=== PATIENT | male | born 1935 | race Caucasian/White ===

== ENCOUNTER 2024-10-09 18:31 | Emergency (ER) | payer MEDICARE, SELFPAY ==
--- NOTE | ~2024-10-09 | CT_ITS ---
History: Remote history of a fall PROCEDURE: CT cervical spine and facial bones without intravenous contrast. COMPARISON: None TECHNIQUE: Multiple contiguous axial images of the cervical spine and facial bones were performed without the ad ministration of intravenous contrast. DLP: 176 mGy-cm FINDINGS: Straightening of the normal curvature of the cervical spine is identified. No acute fractures are present. Significant degenerative disease is identified with osteophyte formation, disc space narrowing, endpl ate changes and vacuum phenomena. Some osteophytes are bridging. 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 The bilateral lung apices are not completely included, insufficient for comment No soft tissue abnormality is appreciated. The airway is patent. No acute facial bone fracture is appreciated. 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 No discrete facial bone fracture is present. Reviewed, dictated and finalized at location A. EWATER TREATMENT OPERATOR Impression: Significant degenerative disease within the cervical spine without acute fractu re. No discrete facial bone fracture is present.
--- NOTE | ~2024-10-09 | XR_ITS ---
CHEST RADIOGRAPH, PA AND LATERAL CLINICAL HISTORY: syncope . COMPARISON: None available TECHNIQUE: PA and lateral views of the chest. FINDINGS The cardiomediastinal silhouette is unremarkable. Elevation of the right hemidiaphragm with adjacent compressive atelectasis. The remainder of the lungs are clear. IMPRESSION: No focal infiltrate or effusion. Reviewed, dictated and finalized at location A. INE ASSEMBLER
--- NOTE | ~2024-10-09 | CT_ITS ---
History: Increasing confusion with remote history of a fall PROCEDURE: CT head without contrast. COMPARISON: None TECHNIQUE: Axial imaging of the head performed from the skull base to the vertex without IV contrast. Sagittal a nd coronal reformations obtained. DLP: 681 mGy-cm FINDINGS: The ventricles are enlarged. The dilatation of the ventricles is proportional to the degree of sulcal prominence, not uncommon in the senescent brain. Decreased attenuation is identified within the periventricular white matter, likely secondary to micr ovascular ischemic disease, in a patient of this age. There is no mass, mass effect or midline shift. There is no abnormal extra-axial fluid collection or intracranial hemorrhage. Visualized paranasal sinuses are clear. The mastoid air cells are well aerated. No acute displaced fractures within the overlying cranium. Impression: No acute intracranial hemorrhage or suspicious mass effect. Reviewed, dictated and finalized at location A. ION MASTER Impression: No acute intracranial hemorrhage or suspicious mass effect.
--- OUTSIDE RECORDS SUMMARY | 2024-10-09 18:35 | XMS_ITS | Data Portability ---
Author Organization [place]! [facility], Main Office Address [address] [place] [address] Care Team Providers Care Oven Dauber Name Role Phone CONOR SENA Primary Care Provider [phone] CONOR SENA Referring Provider [phone] Assessment Encounter Date Assessment Date Assessment LastModified by Organization Details LastModified Time 03/03/2024 03/03/2024 This note is dictated and transcribed by [employer]. [employer] Project Engineer variances may occur. Despite proofreading, typographical errors may occur. Occasional wrong-word or '[id number]' substitutions may have occurred due to the inherent limitations of voice recording. Read the chart carefully and recognize, using context, where substitutions have occurred. Not available 03/03/2024 12:59:13 07/07/2024 07/07/2024 This note is dictated and transcribed by [employer]. Capital Project Engineer variances may occur. Despite proofreading, typographical errors may occur. Occasional wrong-word or 'vkuwa-t-hwia' substitutions may have occurred due to the inherent limitations of voice recording. Read the chart carefully and recognize, using context, where substitutions have occurred. 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 He is not a candidate for shoulder arthroplasty with his age and other medical problems and he otherwise gets along with conservative measures his last cortisone shot was 7 months ago and he did well until an overuse type injury which flared up his shoulder waxing a car. We talked about treatment options today in detail he wanted to proceed with oral prednisone a shot of cortisone and physical therapy we will get him set up with all the above. Under sterile conditions I injected the patient's right shoulder joint in the office today with 4 cc 0.5% bupivacaine and 20 mg of Kenalog. Patient tolerated procedure well. His left shoulder is feeling good so no treatment was necessary there. I have advised him to do his exercise program as instructed by Physical therapy daily as he does have some rotator cuff musculature atrophy around the right shoulder. the patient is quite thin and not heavily muscled which is typical for 89 years of age. I will see him back as needed we could do another shot in the future if necessary he voiced understanding and agreed with the above plan he will call for any further problems difficulties or questions. [email or web address] Not available 07/23/2024 15:11:55 Plan of Treatment Reminders Order Date Submit Date Provider Last Modified By Organization Details Last Modified Time Details Appointments Establish ed Patient 15 2024 03:00P Jeremy Ignacio DPM Not available Not available Not available Lab uric acid, serum or plasma 2023 024 [facility], [address] [place], [address], 03/20/2024 10:05:00 lipid panel, serum 2023 024 [email or web address] [facility], [address] [place], [address], 03/20/2024 10:05:01 CMP, serum or plasma 2023 024 [email or web address] [facility], [address] [place], [address], 03/20/2024 10:05:01 T4, free, serum 2023 024 [email or web address] [facility], [address] [place], [address], 03/20/2024 10:05:01 magnesium , serum or plasma 2023 024 [facility], [address] [place] [address], [address], 03/20/2024 10:05:00 vitamin B12, serum 2023 024 [email or web address] [facility], [address] [place], [address], 03/20/2024 10:05:00 CBC w/ auto diff 2023 024 [email or web address] [facility], [address] [place], [address], 03/20/2024 10:05:00 uric acid, serum or plasma 2024 025 [facility], [address] [place], [address], 09/23/2024 16:01:04 magnesium , serum or plasma 2024 025 [facility], [address] [place], [address], 09/23/2024 16:00:58 vitamin B12, serum 2024 025 [facility], [address] [place], [address], 09/23/2024 16:50:00 CBC w/ auto diff 2024 025 [facility], [address] [place], [address], 09/23/2024 14:30:23 CMP, serum or plasma 2024 025 [facility], [address] [place], [address], 09/23/2024 16:00:50 lipid panel, serum 2024 025 [facility], [address] [place], [address], 09/23/2024 16:00:53 Referral physical therapist referral - Please contact patient to schedule 2023 024 [email or web address] [facility], [address] [place], [address], 09/30/2024 08:19:21 Procedures injection /aspirati on joint/bur sa (PROC) 2023 024 [email or web address] In-Office Order, Internal Use Only DO Not Attach Compendium DO Not Attach Compendium, Do Not Delete/merge, [id number] 07/23/2024 14:09:30 Surgeries None recorded. Imaging None recorded. Medication Orders prednison e 10 mg tablets in a dose pack [address]/Pharmacy #[id number], [address] , [place], [address], 09/23/2024 11:32:35 bupivacai ne HCl 0.5 % (5 mg/mL) injection solution [address]/Pharmacy #[id number], [address] , [place], [address], 09/23/2024 11:32:24 Kenalog 10 mg/mL suspensio n for injection [address]/Pharmacy #[id number], [address] , [place], [address], 09/23/2024 11:32:27 Patient TargetsNo targets recorded. Patient Instructions Encounter Date Encounter Id Patient Instructions Last Modified By Organization Details Last Modified Time 02/26/2024 [id number] dementia rating scale-2* [email or web address] Not available 02/26/2024 11:30:55 alcohol misuse* [email or web address] Not available 02/26/2024 11:30:55 depression screening* [email or web address] Not available 02/26/2024 11:30:54 multi-dimensiona health assessment questionnaire* [email or web address] Not available 02/26/2024 11:30:55 [place] Advance Directives [email or web address] Not available 02/26/2024 11:30:54 advance care planning: care instructions [email or web address] Not available 02/26/2024 11:30:54 advance directiv es: care instructions Not available 02/26/2024 11:30:54 Personalized Hea lth Plan and Screening Recommendations Advance Directives - Do you have one? No Advance Directives - Do we have your advance directive on file in your health record? Primary Prevention/Interven tion (prevents or decreases the chance of common diseases from occurring) Smoking Risk: Non Smoker Alcohol Misuse Screening: Negative Weight: Appropriate Physical activity: Need more exercise/physical activity Nutrition: Good Average Fall Risk (screened today): Low Vaccines Pneumococcal: Ordered Recommended today Recommended today, but you have declined No further needed Influenza: Your next one in the fall of this year Chronic Disease Risks Stroke: Low Risk Intermediate Risk I have no recommendations Act hamilton diagnosis, Continue current treatment plan Heart Attack: Low risk Intermediate Risk I have no recommendations Act hamilton diagnosis, Continue current treatment plan Clogging of the Arteries: Low risk Intermediate Risk I have no recommendations Act hamilton diagnosis, Continue current treatment plan Diabetes: Low Risk I have no recommendations Secondary Prevention/Interven tion (detects treatable diseases before they may cause symptoms, disability, or ) Prostate Cancer Screening: No PSA screening necessary Colon Cancer Screening: Colonoscopy No screening necessary Date Screening Last Performed: _2013 Eye Disease Screening: Dementia Risk: Low I have no recommendations Depression Screening: Negative [email or web address] Not available 02/26/2024 11:19:44 Medicare [facility] risk assessment stable. Follow-up for hypertension, GERD, gout as well as hyperlipidemia. All clinically stable. Will check blood work consisting of CBC, CMP, lipid, B2, Magnesium, Uric acid and thyroid. Will continue on current Rx follow-up in six months. Next Appointment: 6 Months Approximate Date: 08/24/2024 Portions of the record may have been created with voice recognition software. Occasional wrong-word or vivvr-o-[id number] substitutions may have occurred due to the inherent limitations of voice recognition software. Read the chart carefully and recognize, using context, where substitutions have occurred. [email or web address] Not available 02/26/2024 11:30:35 09/23/2024 [id number] Follow-up hypertension, GERD, gout as well as hyperlipidemia all clinically stable. Will continue on current medications check blood work in the form of CBC, CMP, B1, Magnesium, uric acid and lipid panel. Continue on current Rx follow-up in six months. Follow Up: 6 Months Approximate Date: 03/22/2025 Portions of the record may have been created with voice recognition software. Occasional wrong-word or [id number] substitutions may have occurred due to the inherent limitations of voice recognition software. Read the chart carefully and recognize, using context, where substitutions have occurred. Created: Conor Sena M.D. 09.23.2024 10:46 AM Not available 09/23/2024 11:46:38 Reason for Referral Physical Therapist Referral for Nontraumatic complete rupture of rotator cuff of right shoulder Please contact patient to schedule Referring Physician: Harvey Suarez, Orthopedic Surgery, Encounter Date: 07/23/2024 Results Created Date Observation Date Name Description Value Unit Range Abnormal Flag Note LastModifiedBy Organization Detail LastModifiedTime 09/23/1909/23/2024 CBC/C OMPLE TE BLD COUNT W/DIF F white blood cells 5.8 x10'3 /uL 4.2-10 .8 Not Available [facility] (Lab) [address] [place], [address], 09/23/2024 14:30:23 09/23/19 25 09/23/2024 CBC/C OMPLE TE BLD COUNT W/DIF F red blood cells 3.55 x10'6 /uL 4.10-5 .80 low Not Available [facility] (Lab) [address] [place], [address], 09/23/2024 14:30:23 09/23/19 25 09/23/2024 CBC/C OMPLE TE BLD COUNT W/DIF F hemoglobin 11.5 g/dL 13.2-1 7.0 low Not Available [facility] (Lab) [address] [place], [address], 09/23/2024 14:30:23 09/23/19 25 09/23/2024 CBC/C OMPLE TE BLD COUNT W/DIF F hematocrit 35.0 % 39.3-5 0.0 low Not Available [facility] (Lab) [address] [place], [address], 09/23/2024 14:30:23 09/23/19 25 09/23/2024 CBC/C OMPLE TE BLD COUNT W/DIF F mean red cell volume 98.6 fL 80.0-9 7.0 high Not Available [facility] (Lab) [address] [place], [address], 09/23/2024 14:30:23 09/23/19 25 09/23/2024 CBC/C OMPLE TE BLD COUNT W/DIF F mean red cell hemoglobin 32.4 pg 27.0-3 3.0 Not Available [facility] (Lab) [address] [place], [address], 09/23/2024 14:30:23 09/23/19 25 09/23/2024 CBC/C OMPLE TE BLD COUNT W/DIF F mean RBC HGB concentratio n 32.9 g/dL 31.0-3 6.0 Not Available [facility] (Lab) [address] [place], [address], 09/23/2024 14:30:23 09/23/19 25 09/23/2024 CBC/C OMPLE TE BLD COUNT W/DIF F red cell distribution width 15.2 % 11.8-1 5.5 Not Available [facility] (Lab) [address] [place], [address], 09/23/2024 14:30:23 09/23/19 25 09/23/2024 CBC/C OMPLE TE BLD COUNT W/DIF F platelets 305 x10'3 /uL 150-40 0 Not Available [facility] (Lab) [address] [place], [address], 09/23/2024 14:30:23 01/22/20 25 09/23/2024 CBC/C OMPLE TE BLD COUNT W/DIF F mean platelet volume 10.4 fL 9.0-12 .4 Not Available [facility] (Lab) [address] [place], [address], 09/23/2024 14:30:23 09/23/19 25 09/23/2024 CBC/C OMPLE TE BLD COUNT W/DIF F neutrophils 67.3 % 39.0-7 2.0 Not Available [facility] (Lab) [address] [place], [address], 09/23/2024 14:30:23 09/23/19 25 09/23/2024 CBC/C OMPLE TE BLD COUNT W/DIF F lymphocytes 15.0 % 16.0-4 7.0 low Not Available [facility] (Lab) [address] [place], [address], 09/23/2024 14:30:23 09/23/19 25 09/23/2024 CBC/C OMPLE TE BLD COUNT W/DIF F monocytes 14.6 % 5.0-12 .0 high Not Available [facility] (Lab) [address] [place], [address], 09/23/2024 14:30:23 09/23/19 25 09/23/2024 CBC/C OMPLE TE BLD COUNT W/DIF F eosinophils 1.9 % 1.0-7. 0 Not Available [facility] (Lab) [address] [place], [address], 09/23/2024 14:30:23 09/23/19 25 09/23/2024 CBC/C OMPLE TE BLD COUNT W/DIF F basophils 0.7 % 0.0-2. 0 Not Available [facility] (Lab) [address] [place], [address], 09/23/2024 14:30:23 09/23/19 25 09/23/2024 CBC/C OMPLE TE BLD COUNT W/DIF F immature granulocytes 0.5 % 0.00-0 .50 Not Available [facility] (Lab) [address] [place], [address], 09/23/2024 14:30:23 09/23/19 25 09/23/2024 CBC/C OMPLE TE BLD COUNT W/DIF F neutrophils, absolute count 3.91 x10'3 /uL 1.5-8. 0 Not Available [facility] (Lab) [address] [place], [address], 09/23/2024 14:30:23 09/23/19 25 09/23/2024 CBC/C OMPLE TE BLD COUNT W/DIF F lymphocytes, absolute count 0.87 x10'3 /uL 1.07-3 .43 low Not Available [facility] (Lab) [address] [place], [address], 09/23/2024 14:30:23 09/23/19 25 09/23/2024 CBC/C OMPLE TE BLD COUNT W/DIF F monocytes, absolute count 0.85 x10'3 /uL 0.29-0 .99 Not Available [facility] (Lab) [address] [place], [address], 09/23/2024 14:30:23 09/23/19 25 09/23/2024 CBC/C OMPLE TE BLD COUNT W/DIF F eosinophils, absolute count 0.11 x10'3 /uL 0.02-0 .53 Not Available [facility] (Lab) [address] [place], [address], 09/23/2024 14:30:23 09/23/19 25 09/23/2024 CBC/C OMPLE TE BLD COUNT W/DIF F basophils, absolute count 0.04 x10'3 /uL 0.01-0 .08 Not Available [facility] (Lab) [address] [place], [address], 09/23/2024 14:30:23 09/23/19 25 09/23/2024 CBC/C OMPLE TE BLD COUNT W/DIF F immature granulocytes ,absolute 0.03 x10'3 /uL 0.00-0 .05 Not Available [facility] (Lab) [address] [place], [address], 09/23/2024 14:30:23 09/23/19 25 09/23/2024 CBC/C OMPLE TE BLD COUNT W/DIF F nucleated red blood cells 0.0 % -0 Not Available [facility] (Lab) [address] [place], [address], 09/23/2024 14:30:23 09/23/19 25 09/23/2024 CBC/C OMPLE TE BLD COUNT W/DIF F NRBC# 0.00 x10'3 /uL Not Available [facility] (Lab) [address] [place], [address], 09/23/2024 14:30:23 09/23/19 25 09/23/2024 COMPR EHENS HAMILTON METAB OLIC PANEL sodium 130 mmol/ L 137-14 5 low Not Available [facility] (Lab) [address] [place], [address], 09/23/2024 16:00:50 09/23/19 25 09/23/2024 COMPR EHENS HAMILTON METAB OLIC PANEL potassium 4.6 mmol/ L 3.5-5. 1 Not Available [facility] (Lab) [address] [place], [address], 09/23/2024 16:00:50 09/23/19 25 09/23/2024 COMPR EHENS HAMILTON METAB OLIC PANEL chloride 97 mmol/ L 98-107 low Not Available [facility] (Lab) [address] [place], [address], 09/23/2024 16:00:50 09/23/19 25 09/23/2024 COMPR EHENS HAMILTON METAB OLIC PANEL carbon dioxide 30 mmol/ L 22-30 Not Available [facility] (Lab) [address] [place], [address], 09/23/2024 16:00:50 09/23/19 25 09/23/2024 COMPR EHENS HAMILTON METAB OLIC PANEL anion gap 7.6 mmol/ L 14-22 low Not Available [facility] (Lab) [address] [place], [address], 09/23/2024 16:00:50 09/23/19 25 09/23/2024 COMPR EHENS HAMILTON METAB OLIC PANEL glucose 87 mg/dL 70-99 Not Available [facility] (Lab) [address] [place], [address], 09/23/2024 16:00:50 09/23/19 25 09/23/2024 COMPR EHENS HAMILTON METAB OLIC PANEL BUN 17 mg/dL 8-19 Not Available [facility] (Lab) [address] [place], [address], 09/23/2024 16:00:50 09/23/19 25 09/23/2024 COMPR EHENS HAMILTON METAB OLIC PANEL creatinine 0.76 mg/dL 0.66-1 .25 Not Available [facility] (Lab) [address] [place], [address], 09/23/2024 16:00:50 09/23/19 25 09/23/2024 COMPR EHENS HAMILTON METAB OLIC PANEL GFR >60 Refer ence Range : Bryson ge GFR Healt hy Adult : >60 mL/mi n/1.7 3 m2 Chron ic Kidne y Disea se: 15-60 mL/mi n/1.7 3 m2 Kidne y Failu re: <15/m L/min /1.73 m2 www.n iddk. nih.g ov The MDRD study equat ion has not been valid ated in child liliana <18 years of age; pregn ant women ; the elder ly >85 years of age; or in some racia l or ethni c subgr oups, such as Roman nics. Outsi de the valid ated michael eters , estim ated GFR is less accur ate, requi ring clini aden judgm ent on a case- by-ca se basis . Clini aden inter preta tion for other races and ages must be made by the clini carlos alberto. The MDRD study equat ion has not been valid ated for the evalu ation of serum creat inine relat ed to nutri remi l statu s or medic ation usage . For perso ns <18 years of age, a pedia tric GFR calcu lator is avail able on the [facility] websi te: https ://samra hu.rema ross.o rg/pr ofess ional s/kdo qi/gf r_cal culat or Not Available [facility] (Lab) [address] [place], [address], 09/23/2024 16:00:50 09/23/19 25 09/23/2024 COMPR EHENS HAMILTON METAB OLIC PANEL alkaline phosphatase 105 U/L 38-126 Not Available [facility] (Lab) [address] [place], [address], 09/23/2024 16:00:50 09/23/19 25 09/23/2024 COMPR EHENS HAMILTON METAB OLIC PANEL alanine aminotransfe rase 26 U/L 0-50 Not Available [facility] (Lab) [address] [place], [address], 09/23/2024 16:00:50 09/23/19 25 09/23/2024 COMPR EHENS HAMILTON METAB OLIC PANEL aspartate aminotransfe rase 42 U/L 15-46 Not Available [facility] (Lab) [address] [place], [address], 09/23/2024 16:00:50 09/23/19 25 09/23/2024 COMPR EHENS HAMILTON METAB OLIC PANEL bilirubin, total 0.70 mg/dL 0.20-1 .30 Not Available [facility] (Lab) [address] [place], [address], 09/23/2024 16:00:50 09/23/19 25 09/23/2024 COMPR EHENS HAMILTNO METAB OLIC PANEL calcium 9.6 mg/dL 8.4-10 .2 Not Available [facility] (Lab) [address] [place], [address], 09/23/2024 16:00:50 09/23/19 25 09/23/2024 COMPR EHENS HAMILTON METAB OLIC PANEL total protein 7.0 g/dL 6.3-8. 2 Not Available [facility] (Lab) [address] [place], [address], 09/23/2024 16:00:50 09/23/19 25 09/23/2024 COMPR EHENS HAMILTON METAB OLIC PANEL albumin 4.4 g/dL 3.0-4. 4 Not Available [facility] (Lab) [address] [place], [address], 09/23/2024 16:00:50 09/23/19 25 09/23/2024 COMPR EHENS HAMILTON METAB OLIC PANEL globulin 2.6 g/dL 2.6-4. 2 Not Available [facility] (Lab) [address] [place], [address], 09/23/2024 16:00:50 09/23/19 25 09/23/2024 COMPR EHENS HAMILTON METAB OLIC PANEL A/G ratio 1.7 ratio 1.0-2. 0 Not Available [facility] (Lab) [address] [place], [address], 09/23/2024 16:00:50 09/23/19 25 09/23/2024 LIPID PANEL cholesterol 202 mg/dL 140-19 9 high NIH LESLIE NSUS RECOM MENDA TION FOR TEOFILO STERO L: ADULT CHILD LOW RISK: <200 <170 BORDE RLINE : <200- 239 ----- HIGH RISK: >240 >200 Not Available [facility] (Lab) [address] [place], [address], 09/23/2024 16:00:53 09/23/19 25 09/23/2024 LIPID PANEL triglyceride s 102 mg/dL 0-150 NIH LESLIE NSUS REPOR T RECOM MENDA TION FOR TRIGL YCERI TAMIKA: ADULT CHILD LOW RISK: <150 ----- BODER LINE: 150-1 99 ----- HIGH RISK: >200 ----- Not Available [facility] (Lab) [address] [place], [address], 09/23/2024 16:00:53 09/23/19 25 09/23/2024 LIPID PANEL HDL cholesterol 83 mg/dL 40- Not Available [facility] (Lab) [address] [place], [address], 09/23/2024 16:00:53 09/23/19 25 09/23/2024 LIPID PANEL LDL cholesterol, calculated 99 mg/dL 0-130 NIH LESLIE NSUS REPOR T RECOM MENDA TIONS FOR LDL: ADULT CHILD LOW RISK <130 <110 (OPTI MAL LDL) <100 ----- BORDE RLINE : 130-1 59 ----- HIGH RISK: >160 >130 A TRIGL YCERI DE RESUL T >400 INVAL IDATE S THE CALCU LATIO N FOR LDL FRACT IONAT ION - THE LDL RESUL T WILL NOT BE REPOR JOAQUÍN. Not Available [facility] (Lab) [address] [place], [address], 09/23/2024 16:00:53 09/23/19 25 09/23/2024 MAGNE SIUM magnesium 1.9 mg/dL 1.6-2. 3 Not Available [facility] (Lab) [address] [place], [address], 09/23/2024 16:00:58 09/23/19 25 09/23/2024 URIC ACID SERUM uric acid 4.2 mg/dL 3.5-8. 5 Not Available [facility] (Lab) [address] [place], [address], 09/23/2024 16:01:04 09/23/19 25 09/23/2024 VITAM IN B12 (ARMIDA ZABRINA ) vb12 990 pg/mL 239-93 1 high Not Available [facility] (Lab) [address] [place], [address], 09/23/2024 16:50:00 09/29/19 25 09/29/2024 OSMOL ALITY SERUM serum osmolality 285 mosmo l/kg 280-30 1 Not Available [facility] (Lab) [address] [place], [address], 09/29/2024 18:13:30 09/29/19 25 09/29/2024 OSMOL ALITY SERUM confirm 286 mosmo l/k 275-29 5 Not Available [facility] (Lab) [address] [place], [address], 09/29/2024 18:13:30 09/29/19 25 09/29/2024 OSMOL ALITY URINE ur osmol 494 mosmo l/k 50-120 0 Not Available [facility] (Lab) [address] [place], [address], 09/29/2024 18:15:57 09/29/19 25 09/29/2024 OSMOL ALITY URINE confirm 496 mosmo l/k 50-120 0 Not Available [facility] (Lab) [address] [place], [address], 09/29/2024 18:15:57 09/29/19 25 09/29/2024 IRON/ TIBC PANEL total iron binding capacity 293 mcg/d L 265-47 5 Not Available [facility] (Lab) [address] [place], [address], 09/29/2024 20:30:29 09/29/19 25 09/29/2024 IRON/ TIBC PANEL % transferrin saturation 28 % 20-55 Not Available [facility] (Lab) [address] [place], [address], 09/29/2024 20:30:29 09/29/19 25 09/29/2024 IRON/ TIBC PANEL unsaturated iron bind capacity 212 mcg/d L 126-38 2 Not Available [facility] (Lab) [address] [place], [address], 09/29/2024 20:30:29 09/29/19 25 09/29/2024 IRON/ TIBC PANEL iron 81 mcg/d L 42-175 Not Available [facility] (Lab) [address] [place], [address], 09/29/2024 20:30:29 09/29/19 25 09/30/2024 PROTE IN ELECT RO.,S protein, total 6.1 g/dL 6.0-8. 5 Not Available [facility] (Lab) [address] [place], [address], 09/30/2024 16:10:12 09/29/19 25 09/30/2024 PROTE IN ELECT RO.,S albumin 3.3 g/dL 2.9-4. 4 Not Available [facility] (Lab) [address] [place], [address], 09/30/2024 16:10:12 09/29/19 25 09/30/2024 PROTE IN ELECT RO.,S yipuw-8-eiup ulin 0.2 g/dL 0.0-0. 4 Not Available [facility] (Lab) [address] [place], [address], 09/30/2024 16:10:12 09/29/19 25 09/30/2024 PROTE IN ELECT RO.,S epjkw-5-uyvj ulin 0.8 g/dL 0.4-1. 0 Not Available [facility] (Lab) [address] [place], [address], 09/30/2024 16:10:12 09/29/19 25 09/30/2024 PROTE IN ELECT RO.,S beta globulin 1.0 g/dL 0.7-1. 3 Not Available [facility] (Lab) [address] [place], [address], 09/30/2024 16:10:12 09/29/19 25 09/30/2024 PROTE IN ELECT RO.,S gamma globulin 0.8 g/dL 0.4-1. 8 Not Available [facility] (Lab) [address] [place], [address], 09/30/2024 16:10:12 09/29/19 25 09/30/2024 PROTE IN ELECT RO.,S M-spike NOT OBSERV ED g/dL not observ ed Not Available [facility] (Lab) [address] [place], [address], 09/30/2024 16:10:12 09/29/19 25 09/30/2024 PROTE IN ELECT RO.,S globulin, total 2.8 g/dL 2.2-3. 9 Not Available [facility] (Lab) [address] [place], [address], 09/30/2024 16:10:12 09/29/19 25 09/30/2024 PROTE IN ELECT RO.,S A/G ratio 1.2 0.7-1. 7 Not Available [facility] (Lab) [address] [place], [address], 09/30/2024 16:10:12 09/29/19 25 09/30/2024 PROTE IN ELECT RO.,S please note: DO De La Cruz . Prote in elect [facility] resis scan will follo w via compu ter, mail, or couri er maral anderson. Not Available [facility] (Lab) [address] [place], [address], 09/30/2024 16:10:12 09/29/19 25 09/30/2024 PROTE IN [facility] RO.,S pdf . [facility] [address] [place] [address] [address] Lab Direc tor: Jareth olivier PhD, Phone : [phone] Not Available [facility] (Lab) [address] [place], [address], 09/30/2024 16:10:12 09/29/19 25 09/30/2024 [place] NENA TIN ferritin 38 NG/mL 17.9-4 64 Not Available [facility] (Lab) [address] [place], [address], 09/30/2024 17:30:29 Result Notes None recorded. 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 Not Available [facility] 4 18:08:05 Foot callus 405542290 Active Not Available [facility] 4 18:08:05 Gastroesop hageal reflux disease 694963287 Active 2018 Not Available [facility] 4 18:08:05 Benign prostatic hyperplasi a 747178156 Active Not Available [facility] 4 18:08:05 Pure hyperchole sterolemia 449987638 Active Not Available [facility] 4 18:08:05 Syncope 077241029 Active 2021 Not Available [facility] 4 18:08:05 Chest pain 18313631 Active 2017 Not Available [facility] 4 18:08:05 Enthesopat hy of hip region 94164155 Active Not Available [facility] 4 18:08:05 Postoperat hamilton infection 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 Active Not Available [facility] 4 18:08:06 Contact dermatitis 10480713 Active Not Available [facility] 4 18:08:06 Onychomyco sis 871893713 Active Not Available [facility] 4 18:08:06 Carotid bruit 357779663 Active 2021 Not Available [facility] 4 18:08:06 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 87961521 Active Not Available [facility] 4 18:08:06 Gastric hemorrhage 51569880 Active 2018 Not Available [facility] 4 18:08:06 Gout 99926164 Active 2021 Not Available [facility] 4 18:08:06 Dystrophia unguium 99336851 Active 2022 Not Available [facility] 4 18:08:06 Unable to cut own toenails 483305596 Active 2022 Not Available [facility] 4 18:08:05 Pain of toe of right foot 4385968695459 01 Active 2022 Not Available [facility] 4 18:08:05 Hammer toe 443853872 Active 2022 Not Available [facility] 4 18:08:05 Anemia 682996767 Active 2023 Not Available [facility] 4 18:08:05 Acute bronchitis 56020088 Active 2023 Conor Sena MD [address], [place], [address] , [facility] [employer] [facility] 4 10:59:35 Expiratory wheezing 3602349 Active 2023 Conor Sena MD [address], [place], [address] , [facility] 4 11:46:28 Cough 11119745 Active 2023 KENN Christensen, [facility] 4 11:44:22 Bilateral shoulder joint pain 3871154066384 9104 Active 2023 Lakshmi Hernadez blessing, [facility] 4 15:22:30 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 0300359383234 100 Active 2023 ALEXANDRE Bowman [address], [address], [place], [address] , [facility] [employer] [facility] 4 16:43:44 Tendinitis of left rotator cuff 4148257346473 9101 Active 2023 ALEXANDRE Bowman [address], [address], [place], [address] , [facility] 4 16:43:57 Hyponatrem ia 51235136 Active 2024 KENN Christensen, [facility] [employer] [facility] 5 11:36:58 Problem Notes None recorded. Procedures Surgical History Date Name Laterality Status Provider Name and Address Organization Details Recorded Time 4 Nail Debridement completed Jabari Ignacio DPM [address], [address], [place], [address], [facility] [employer] [facility] 07/07/2024 12:12:10 4 Nail Debridement completed Jabari Ignacio DPM [address], [address], [place], [address], [facility] [employer] [facility] 03/03/2024 12:58:50 4 Medicare Wellness CPT Code, subsequent completed Ericka Nelson RN [facility] [employer] [facility] 02/26/2024 11:12:41 4 Advanced Care Planning completed Ericka Nelson RN [facility] [employer] [facility] 02/26/2024 11:24:36 4 Nail Debridement completed Jabari Ignacio DPM [address], [address], [place], [address], [employer] 11/21/2023 16:23:12 3 Nail Debridement completed Jabari Ignacio DPM [address], [address], [place], [address], [employer] 08/13/2023 10:34:46 3 Nail Debridement completed Jabari Ignacio DPM [address], [address], [place], [address], [employer] 12/25/2022 10:41:54 3 Callus Debridement, One completed Jabari Ingacio DPM [address], [address], [place], [address], [employer] 12/25/2022 10:42:02 Imaging Results None recorded. Procedure Notes None recorded. Medical Equipment None Reported. Allergies Allergen ID Allergen Name Allergen Category Reaction Reaction Severity Criticality Documentation Date Start Date Code Code System Note Provider Name and Address Organization Details Recorded Time 1786 Substance with sulfonami de structure and antibacte rial mechanism of action (substanc e) medicatio n Not available Not available Not available 10/31/2022 33845 8003 SNOMED Not Available [facility] 3 01:15:28 1787 lisinopri l medicatio n Not available Not available Not available 10/31/2022 63996 RxNorm Not Available [facility] 3 01:15:28 1788 Keflex medicatio n other Not available Not available 10/31/2022 00521 7 RxNorm diffi culty urina ting Not Available [facility] 3 01:15:28 1789 cephalexi n medicatio n Not available Not available Not available 10/31/2022 2231 RxNorm Not Available [facility] 3 01:15:28 1790 Product containin g angiotens in-conver ting enzyme inhibitor (product) medicatio n other Not available Not available 10/31/2022 57373 009 SNOMED angio edema Not Available [facility] 3 01:15:28 Medications Name Sig Start Date Stop Date Status Note LastModified by Organization Details LastModified Time Tylenol-Cod eimacy #4 300 mg-60 mg tablet Take 1 tablet every 6 hours by oral route. 07/15 completed Not Available Not Available Not Available prednisone 10 mg tablet PLEASE SEE ATTACHED FOR DETAILED DIRECTION S 09/23 completed Not Available Not Available Not Available doxycycline hyclate 100 mg capsule Take 1 capsule twice a day by oral route. 02/25 completed Not Available Not Available Not Available desoximetas one 0.25 % topical cream APPLY A THIN LAYER TO THE AFFECTED AREA(S) BY TOPICAL ROUTE 2 TIMES PER DAY ; RUB IN GENTLY AND COMPLETEL Y 2012 active Not Available Not Available Not Avai lable ammonium lactate 12 % lotion Apply to both feet daily as needed active Not Available Not Available No t Available azithromyci n 250 mg tablet TAKE 2 TABLETS BY MOUTH TODAY, THEN TAKE 1 TABLET DAILY FOR 4 DAYS DIRECTED 02/25 completed Not Available Not Available Not Available aspirin 325 mg tablet Take 1 tablet every day by oral route. 12/24 completed Not Available Not Available Not Available ofloxacin 0.3 % eye drops 02/08 completed Not Available Not Available Not Available benzonatate 200 mg capsule TAKE 1 CAPSULE BY MOUTH THREE TIMES A DAY 02/25 completed Not Available Not Available Not Available Claritin 10 mg tablet Take 1 tablet as needed by oral route. 2020 active Not Available Not Available Not Avai lable Keflex 500 mg capsule Take 1 capsule 4 times a day by oral route. active Not Available Not Available No t Available bupivacaine HCl 0.5 % (5 mg/mL) injection solution Take 20 mg by injection route. 09/23 completed Not Available Not Available Not Available amlodipine 5 mg tablet TAKE 1 TABLET BY MOUTH EVERY DAY active Not Available Not Available No t Available tramadol 50 mg tablet 07/29 completed Not Available Not Available Not Available triamcinolo ne acetonide 0.1 % topical cream APPLY THIN COAT TO AFFECTED AREA TWICE A DAY 11/20 completed Not Available Not Available Not Available ketorolac 0.5 % eye drops 02/08 completed Not Available Not Available Not Available prednisone 10 mg tablets in a dose pack Take 1 tab by mouth, 3 times a day for 3 daysTake 1 tab by mouth 2 times a day for 2 daysTake 1 tab by mouth once a day for 1 day 09/23 completed Not Available Not Available Not Available prednisolon e acetate 1 % eye drops,suspe nsion 04/21 completed Not Available Not Available Not Available Vitamin C 1,000 mg tablet Take 1 tablet every day by oral route. 2018 active Not Available Not Available Not Avai lable Kenalog 10 mg/mL suspension for injection Take 20 mg by injection route. 09/23 completed [facility]: [phone] Not Available Not Available Not Available pantoprazol e 40 mg tablet,jack yed release TAKE 1 TABLET BY MOUTH EVERY DAY 2024 active Not Available Not Available Not Avai lable ferrous sulfate 325 mg (65 mg iron) tablet TAKE 1 TABLET BY MOUTH TWICE A DAY 07/15 completed Not Available Not Available Not Available clotrimazol e-betametha sone 1 %-0.05 % topical cream Apply by topical route twice daily 04/21 completed Not Available Not Available Not Available methylpredn isolone 4 mg tablets in a dose pack Take by oral route as directed 02/25 completed Not Available Not Available Not Available albuterol sulfate HFA 90 mcg/actuati on aerosol inhaler INHALE 2 PUFFS INTO THE LUNGS 4 TIMES A DAY NEEDED 11/20 completed Not Available Not Available Not Available cefdinir 300 mg capsule Take 1 capsule every 12 hours by oral route. 07/15 completed Not Available Not Available Not Available amoxicillin 875 mg-potassiu m clavulanate 125 mg tablet Take 1 tablet every 12 hours by oral route for 7 days. 02/17 completed Not Available Not Available Not Available Bactrim DS 800 mg-160 mg tablet Take 1 tablet every 12 hours by oral route for 10 days. 07/15 completed Not Available Not Available Not Available cyclobenzap rine 5 mg tablet TAKE 1 TABLET BY MOUTH TWICE A DAY DO NOT OPERATE MACHINERY WHILE TAKING 11/20 completed Not Available Not Available Not Available magnesium 03/12 completed Not Available Not Available Not Available lidocaine (PF) 10 mg/mL (1 %) injection solution In office injection administe red by the provider 03/12 completed [facility]: [phone]- [phone] Not Available Not Available Not Available Fish Oil 1,000 mg (120 mg-180 mg) capsule Take 1 capsule every day by oral route. 2018 active Not Available Not Available Not Avai lable Shingrix (PF) 50 mcg/0.5 mL intramuscul ar suspension, kit TO BE ADMINISTE RED BY [email or web address] T FOR IMMUNIZAT ION 04/21 completed Not Available Not Available Not Available Fluzone High-Dose Quad (PF) 240 mcg/0.7 mL IM syringe PHARMACY ADMINISTE RED 02/08 completed Not Available Not Available Not Available Flowflex COVID-19 Antigen Home Test kit USE DIRECTED ON MANUFACTU RER PACKAGE 03/12 completed Not Available Not Available Not Available Paxlovid 300 mg (150 mg x 2)-100 mg tablets in a dose pack TAKE 2-150MG TABS OF NIRMATREL VIR WITH 1-100MG TAB OF RITONAVIR (3 TABS AT ONCE)TWIC E DAILY X 5 DAYS 03/12 completed Not Available Not Available Not Available Vitals Date Recorded Body height Body mass index (BMI) Body weight Heart rate Body temperature Oxygen saturation Oxygen saturation in Arterial blood by Pulse oximetry Systolic blood pressure Diastolic blood pressure Provider Name and Address Organization Details Last Updated DateTime 163.83 cm 22.1 kg/m2 83597.6 g 85 /min 97.4 [degF] 96 % 96 % 140 mm[Hg] 82 mm[Hg] JAC Mccarty [facility] [employer] 4 11:00:28 Date Recorded Pain severity - 0-10 verbal numeric rating [Score] - Reported Provider Name and Address Organization Details Last Updated DateTime 02/26/2024 0 Ericka Nelson RN [facility] [employer] 02/26/2024 11:13:03 Date Recorded Body height Heart rate Systolic blood pressure Diastolic blood pressure Provider Name and Address Organization Details Last Updated DateTime 03/03/2024 163.83 cm 73 /min 175 mm[Hg] 88 mm[Hg] JAC Ya [place] [facility] [employer] [facility] 03/03/2024 11:12:32 Date Recorded Body height Body mass index (BMI) Body weight Heart rate Systolic blood pressure Diastolic blood pressure Provider Name and Address Organization Details Last Updated DateTime 4 163.83 cm 22.1 kg/m2 57319.6 g 75 /min 167 mm[Hg] 77 mm[Hg] Sofía Lozanod [facility] [employer] [facility] 4 11:10:47 Date Recorded Body height Body mass index (BMI) Body weight Provider Name and Address Organization Details Last Updated DateTime 07/23/2024 167.64 cm 22.6 kg/m2 93606.93 g Candelaria KayesSYMONE [place] [facility] [employer] 07/23/2024 13:34:04 Date Recorded Body height Body mass index (BMI) Body weight Heart rate Body temperature Oxygen saturation Oxygen saturation in Arterial blood by Pulse oximetry Systolic blood pressure Diastolic blood pressure Provider Name and Address Organization Details Last Updated DateTime 5 158.75 cm 24 kg/m2 44706.5 8 g 82 /min 97 [degF] 97 % 97 % 120 mm[Hg] 78 mm[Hg] Mikayla Pandeylazarus [place] [facility] [employer] 5 11:32:11 Social History Question Answer Notes LastModified by Organization Details LastModified Time Tobacco Smoking Status Former Smoker Not Available [facility] 10/31/2022 00:54:27 Do You Have An Advance Directive? No Info Given [email or web address] Information not available 02/26/2024 What Is Your Level Of Alcohol Consumption? Occasional [id number] Information not available 10/31/2022 Do You Wear A Helmet When Biking? No Don't Bike MIGRATION.030 [id number] Information not available 10/31/2022 Are You Blind Or Do You Have Difficulty Seeing? No MIGRATION.030 013401 Information not available 10/31/2022 In The 14 Days Before Symptom Onset, Have You Had Close Contact With A Laboratory-confi rmed COVID-19 While That Case Was Ill? No [id number].[id number] Information not available 10/31/2022 In The 14 Days Before Symptom Onset, Have You Had Close Contact With A Person Who Is Under Investigation For COVID-19 While That Person Was Ill? No MIGRATION.0301 042146 Information not available 10/31/2022 Are You Deaf Or Do You Have Serious Difficulty Hearing? Yes Has Hearing Aids MIGRATION.0301 601914 Information not available 10/31/2022 What Type Of Diet Are You Following? REGULAR MIGRATION.0301 458318 Information not available 10/31/2022 Have There Been Any Changes To Your Family Or Social Situation? No MIGRATION.0301 832115 Information not available 10/31/2022 What Is The Fluoride Status Of Your Home? Non-fluoridated MIGRATION.0301 030806 Information not available 10/31/2022 Are There Any Guns Present In Your Home? No MIGRATION.0301 224890 Information not available 10/31/2022 Do You Use Insect Repellent Routinely? No MIGRATION.0301 352930 Information not available 10/31/2022 [facility] M[facility]01 [id number] Information not available 10/31/2022 Are You Able To Care For Yourself? Yes [email or web address] Information not available 02/26/2024 Are You Blind Or Do Yo Have Difficulty Seeing? No [email or web address] Information not available 02/26/2024 Are You Deaf Or Do You Have Serious Difficulty Hearing? No [email or web address] Information not available 02/26/2024 Live Alone Of With Others? With Others [email or web address] Information not available 02/26/2024 Do You Have A Medical Power Of Maintenance And Utilities Supervisor? No MIGRATION.0301 [id number] Information not available 10/31/2022 What Was The Date Of Your Most Recent Tobacco Screening? 02/26/2024 [email or web address] Information not available 02/26/2024 Do You Have Any Pets? No MIGRATION.0301 262428 Information not available 10/31/2022 What Is Your Relationship Status? MIGRATION.0301 403230 Information not available 10/31/2022 Do You Use Your Seat Belt Or Car Seat Routinely? Yes MIGRATION.0301 764880 Information not available 10/31/2022 Do You Have Smoke And Carbon Monoxide Detectors In Your Home? Yes MIGRATION.0301 072124 Information not available 10/31/2022 Are You Passively Exposed To Smoke? No MIGRATION.0301 098319 Information not available 10/31/2022 Are There Any Smokers In Your House? No MIGRATION.0301 993180 Information not available 10/31/2022 Do You Feel Stressed (tense, Restless, Nervous, Or Anxious, Or Unable To Sleep At Night)? [id number] MIGRATION.0301 167739 Information not available 10/31/2022 Do You Use Sunscreen Routinely? No MIGRATION.0301 184347 Information not available 10/31/2022 Have You Recently Traveled Abroad? No MIGRATION.0301 009667 Information not available 10/31/2022 Do You Have Any Dietary Restrictions? No MIGRATION.0301 607505 Information not available 10/31/2022 Sex: Male Functional Status Question Answer Note LastModified by [employer] Details LastModified Time Do you have difficulty walking or climbing stairs? No MIGRATION.[id number] 026 Information not available 10/31/2022 Do you have transportation difficulties? No MIGRATION.0724949 026 Information not available 10/31/2022 Are you able to walk? YESWOREST MIGRATION.7466579 026 Information not available 10/31/2022 Do you have difficulty doing errands alone? No MIGRATION.2026553 026 Information not available 10/31/2022 Are you able to care for yourself? Yes MIGRATION.8924592 026 Information not available 10/31/2022 Do you have difficulty dressing or bathing? No MIGRATION.2406212 026 Information not available 10/31/2022 What is your exercise level? Moderate MIGRATION.2361267 026 Information not available 10/31/2022 Mental Status Question Answer Note LastModified by Organizat ion Details LastModified Time Do you have difficulty concentrating, remembering or making decisions? No MIGRATION.[id number] 6 Information not available 10/31/2022 Family History Relationship Description Onset Age of this Age Resolved Age Notes LastModified by Organization Details LastModified Time Mother Essential hypertension MIGRATION.674 [id number] Not available 10/31/2022 00:57:15 Mother Heart disease MIGRATION.246 [id number] Not available 10/31/2022 00:57:15 Mother Diabetes mellitus [email or web address] Not available 2023 15:21:16 Notes:Mother 80 yea rs old Father 32 years old Mother Hx: ASHD Father Hx: Peritonitis Medical History Condition Response NERVE DISEASE N BLINDNESS N RHEUMATIC FEVER N KIDNEY STONES N BLADDER PROBLEMS N MRSA N OTHER # 1 N POLIO N LUNG DISEASE/DISORDER N HISTORY OF DRUG ABUSE N RADIATION / CHEMOTHERAPY N COPD N Other # 2 N BLOOD DISEASES N EAR OR HEARING PROBLEMS N MUMPS N SHINGLES N BOWEL PROBLEMS N DEPRESSION (INCLUDING POST ) N STROKE/TIA N ULCERS Y BENIGN PROSTATIC HYPERPLASIA N MEASLES N HYPOTENSION N MYOCARDIAL INFARCTION N OBESITY N GERD/NAUSEA N ANEURYSM N URINARY/BLADDER/KIDNEY PROBLEMS N CORONARY ARTERY DISEASE (CAD) N ADDICTION CONCERNS N Impotence N ENDOMETRIOSIS N USE OF BLOOD THINNERS N SKIN PROBLEMS N GASTROINTESTINAL DISORDER N PERIPHERAL VASCULAR DISEASE N MUSCLE,JOINT OR BONE PROBLEMS N GASTROINTESTINAL BLEEDING N BLOOD CLOTS N ASTHMA N CATARACTS N ERECTILE DYSFUNCTION N VARICOSITIES N GI PROBLEMS N Low Testosterone N INFERTILITY N AIDS/HIV N CHEMOTHERAPY / RADIATION N LIVER DISEASE N MALE HYPOGONADISM N HYPERTENSION Y Deficiency N TOURETTE'S N ANXIETY DISORDER N BLOOD TRANSFUSION N ANEMIA/BLOOD DISORDER N CHRONIC EAR INFECTIONS N BRONCHITIS N TUBERCULOSIS N GLAUCOMA N FOOT PROBLEM N DIVERTICULITIS N SLEEP APNEA N CHICKENPOX N INFECTIOUS DISEASE N PROSTATE N HEART ARRHYTHMIA N INSOMNIA N HIGH CHOLESTEROL / HYPERLIPIDEMIA N EYE PROBLEMS N HYPERTHYROIDISM N EDEMA N CHRONIC PAIN SYNDROME N HYPOTHYROIDISM N CONSTIPATION N CAROTID BLOCKAGE N BACK / NECK PROBLEMS N HAVE YOU BEEN HOSPITALIZED OR SEEN IN [facility] IN THE PAST YEAR ? N ATHEROSCLEROSIS N BREAST PROBLEMS N DIALYSIS N ECZEMA N OSTEOPOROSIS N ARTHRITIS Y NO SIGNIFICANT PAST MEDICAL HISTORY N APPENDICITIS N DIABETES, TYPE N BAD TEETH N ENT N HEARTBURN / REFLUX N AUTISM SPECTRUM DISORDER (ASD) N HEPATITIS / LIVER DISEASE N GOUT N SLEEP DISORDER N ALZHEIMER'S DISEASE N Brain Problems N DEMENTIA N HERPES N SEIZURES/EPILEPSY N HEADACHES/MIGRAINES N VASCULAR DISEASE N PACEMAKER N Blood Disorder N DIZZINESS N HEART DISEASE/HEART PROBLEMS N KIDNEY DISEASE N MULTIPLE SCLEROSIS N CANCER: SPECIFY N CARDIAC ARRHYTHMIA N ATRIAL FIBRILLATION N Gall Stones N PULMONARY EMBOLISM N AUTOIMMUNE DISEASE N Immunizations Vaccine Type Date Status Note Provider Nam e and Address Organization Details Recorded Time influenza, unspecified formulation 4 completed [facility] 07/23/2024 18:16:03 Influenza, split virus, trivalent, preservative 8 completed Not Available [facility] 10/03/2023 18:08:06 Influenza, high-dose, trivalent, PF 2 completed Not Available [facility] 10/03/2023 18:08:06 Influenza, split virus, quadrivalent, preservative 1 completed Not Available [facility] 10/03/2023 18:08:06 COVID-19, mRNA, LNP-S, PF, 30 mcg/0.3 mL dose 1 completed Not Available [facility] 10/03/2023 18:08:06 SARS-COV-2 (COVID-19) vaccine, UNSPECIFIED 1 completed Not Available [facility] 10/03/2023 18:08:06 SARS-COV-2 (COVID-19) vaccine, UNSPECIFIED 1 completed Not Available [facility] 10/03/2023 18:08:06 pneumococcal polysaccharide PPV23 1 completed Not Available [facility] 10/03/2023 18:08:06 Td (adult), 5 Lf tetanus toxoid, preservative free, adsorbed 1 completed Not Available [facility] 10/03/2023 18:08:06 Pneumococcal conjugate PCV 13 5 completed Not Available [facility] 10/03/2023 18:08:06 Past Encounters Encounter ID Performer Location Encounter Start Date Encounter Closed Date Diagnosis/Indication Diagnosis SNOMED-CT Code Diagnosis ICD10 Code Diagnosis Note [id number] _JUMANA_M IGRATION_ DEFAULT_1 _1 , 12/16/2020 00:00:00 12/21/2020 10:33:54 [id number] [facility] [address] [address] 02/08/2021 00:00:00 02/08/2021 11:55:26 [id number] [facility] [address] [address] 04/20/2021 00:00:00 04/20/2021 11:52:24 [id number] [facility] [place] [address] [place] [address] 04/21/2021 00:00:00 04/21/2021 15:00:19 [id number] [facility] Pod[facility] [place] [facility] [address] [facility] [address] [place] [address] 08/07/2021 00:00:00 08/08/2021 13:35:18 [id number] [facility] [address] [place] [address] [address] 08/09/2021 00:00:00 08/09/2021 11:23:19 [id number] _ATHENA_M IGRATION_ DEFAULT_1 _1 , 12/01/2021 00:00:00 12/03/2021 14:23:41 [id number] [facility] [address] [place] [address] 03/12/2022 00:00:00 03/12/2022 12:37:23 [id number] _ATHENA_M IGRATION_ DEFAULT_1 _1 , 04/27/2022 00:00:00 04/30/2022 21:19:58 [id number] [facility] [address] [place], [place] [address] [address] 07/16/2022 00:00:00 07/16/2022 16:11:53 [id number] _ATHENA_M IGRATION_ DEFAULT_1 _1 , 08/24/2022 00:00:00 08/24/2022 11:20:18 [id number] [facility] [address] [place] [address] 08/29/2022 00:00:00 08/29/2022 16:53:48 [id number] Jabari Ignacio DPM [facility] [place] [address] [facility] [place] [address] 12/25/2022 10:17:12 12/25/2022 10:54:27 Dystrophia unguium 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 Nails were debrided and greater than 50% length and thickness where needed. Foot callus [id number] L8 4 Debrided without incidentCo ntinue offloading Monitor for wounds daily it presents seek medical attention immediatel y Unable to cut own toenails [id number] Z74.1 [id number] Conor Sena MD [facility] [place] [facility] [address] [address] 02/27/2023 15:42:52 02/27/2023 16:18:23 Gastroesophageal reflux disease [id number] K21.9 Gout 45775249 M10.9 Pure hypercholesterolemia 811860871 E78.00 [id number] Jabari Ignacio DPM [facility] Podiatry [address], [facility] 4 [place] [address] 08/13/2023 10:10:46 08/13/2023 11:43:41 Pain of toe of right foot 6142371415 22958 M79.674 right 3rd toeseconda ry to callus and toenail thicknessc ontinue supportive shoe gearfollow -up as needed Dystrophia unguium 67169 009 L60.3 Nails 1 through 10 were debrided with sharp mechanical debridemen t without incident. Nails were debrided and greater than 50% length and thickness where needed. Hammer toe 249456646 M20 .41 continue offloading of toes to prevent wounddenie s surgery secondary to agewill continue to monitorrec ommend wide soft toe box style shoe gear [id number] Conor Sena MD [facility] [place] [facility] [address] [address] 08/28/2023 10:46:47 08/28/2023 11:28:58 Benign essential hypertension 9867058 I10 Benign pro static hyperplasia 968977344 N40.0 Pure hypercholesterolemia 658627889 E78.00 Gastroesop hageal reflux disease 140591613 K21.9 Gout 44275734 M10.9 [id number] Jabari Ignacio DPM [facility] [place] [address] [place] [address], [facility] 4 [place] [address] 11/21/2023 14:12:34 11/26/2023 11:20:45 Dystrophia unguium 21302360 L60.3 Nails 1 through 10 were debrided with sharp mechanical debridemen t without incident. Nails were debrided and greater than 50% length and thickness where needed. Unable to cut own toenails 425865689 Z74.1 [id number] ALEXANDRE Bowman [facility] Ortho [place] [address] 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 4970218664 015343 M75.121 Tendinitis of left rotator cuff 9538760626 3771862 M67.299 [id number] Conor Sena MD [facility] [place] [facility] [address] [address] 02/26/2024 10:48:09 02/26/2024 11:32:05 Adult health examination 103564506 Z00.00 Screening for disorder 509648320 Z13.9 Benign ess ential hypertension 8319520 I10 Gastroesop hageal reflux disease 241866314 K21.9 Gout 02578651 M10.9 Pure hypercholesterolemia 706223949 E78.00 [id number] Jabari Ignacio DPM [facility] Podiatry [address], [address] [address] 03/03/2024 11:06:24 03/06/2024 09:46:49 Dystrophia unguium 47702099 L60.3 Nails 1 through 10 were debrided with sharp mechanical debridemen t without incident. Nails were debrided and greater than 50% length and thickness where needed. Unable to cut own toenails 834179825 Z74.1 [id number] Jabari Ignacio DPM [facility] Podiatry [address], [address] [address] 07/07/2024 11:00:28 08/28/2024 11:12:28 Dystrophia unguium 41376495 L60.3 Nails 1 through 10 were debrided with sharp mechanical debridemen t without incident. Nails were debrided and greater than 50% length and thickness where needed. Pain of to e of right foot 6755985208 62491 M79.674 right 3rd toeseconda ry to callus and toenail thickness- recommend offloading with silicone toe capcontinu e supportive shoe gearpatien t defers surgery secondary to agefollow- up as needed [id number] ALEXANDRE Bowman [facility] [place] 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 6729907568 506468 M75.121 Tendinitis of left rotator cuff 4330474984 9101347 M67.536 [id number] Conor Sena MD [facility] Internal Med [address] [facility] 24 [place] [address] 09/23/2024 11:13:05 09/23/2024 11:53:31 Benign essential hypertension 2971237 I10 Gastroesop hageal reflux disease 214104492 K21.9 Gout 88303618 M10.9 Pure hypercholesterolemia 884689732 E78.00 Health Concerns Section Related Observation LastModified by Organization Detai ls LastModified Time None Recorded Concern Status LastModified by Organization Details LastModified Time None Recorded Advance Directives Directive N: Info given Payers Encounter Date Sequence Insurance Name Policy Number Policy Rosario Covered Member ID Rosario Member ID Guarantor Name 02/26/2024 1 [place] Bar Pryor [id number] Bar Josefmarques 02/26/2024 2 [employer] [place] (MEDICARE SUPPLEMENT) Bar Pryor [id number] Bar Pryor 03/03/2024 1 [place] Bar Pryor [id number] Bar Pryor 03/03/2024 2 [employer] (MEDICARE SUPPLEMENT) Bar Pryor [id number] Bar Pryor 07/07/2024 1 [place] Bar Pryor [id number] Bar Pryor 07/07/2024 2 [employer] [place] (MEDICARE SUPPLEMENT) Bar Pryor [id number] Bar Pryor 07/23/2024 1 [place] Bar Pryor [id number] Bar Pryor 07/23/2024 2 [employer]UR[employer] [place] (MEDICARE SUPPLEMENT) Bar Pryor [id number] Bar Pryor 09/23/2024 1 [place] Bar Pryor [id number] Bar Pryor 09/23/2024 2 [employer] [place] (MEDICARE SUPPLEMENT) Bar Pryor [id number] Bar Pryor Notes Date Note Type Note Provider Name and Address Organization Details Recorded Time 02/26/2024 text/html Patient Name: Christine PryorDate Of Service: Saturday ( 02.26.2024 ): 1935 Age: 88 There has been approximately a 5 lb weight loss since 08/28/2023. This represents approximately a 3.7% change in weight. Weight change attributable to lifestyle changes. Vital Signs:Blood Pressure: Sitting Rt. Arm 140/82Pulse: Sitting 85 /min and RegularRespiratory Rate: 12Height 65 in or 1.7 mWeight 131 lb or 59.4 kgBMI 21.8Temperature: 97.4 F or 36.3 CPulse Oximetry: 96 % at rest on no oxygen Chief Complaint: Addressed in HPI Problems or conditions discussed in the HPI were the only ones reviewed during the encounter.Only social and family history addressed in the HPI were reviewed during this encounter. A significant, separate E/M service was performed to evaluate the current and new problems. Attendant(s): NoneConstitutional and Systemic Symptoms:none Medication Reconciliation: from medication list. History of Present Illness Reviewed the findings of the preventative health visit. Addressed all areas with the patient, patient's family or caregivers. Preventative examinations and testing immunizations - vaccinations all reviewed and ordered where patient was amenable to the recommendations. Cognitive function was normal. Depression addressed and where necessary medications were adjusted or instituted. End of life and living will briefly discussed with patient and where these can be filled out and legally executed. Other blood and imaging studies were ordered if considered necessary. Other recommendations may be found in the encounter note. #1. Essential Hypertension: Stage: Stage I Interval Neurological Complaints no headaches, dizziness, weakness, visual changes, ataxia, aphasia and apraxia. No shortness of breath, orthopnea or cardiovascular symptoms. No other symptoms related to end organ damage. Pressure has been under excellent control. Currently normal. No other end organ symptoms or findings. Therapy reviewed regarding management of hypertension and includes salt restriction and Norvasc. #2. Hx of esophageal reflux currently stable. Hx of Complications: none The severity, duration and intensity of symptoms have improved. Frequency: most meals Treatment consists medications taken on intermittent basis. Current therapy includes Protonix. There has been no nausea, eructation, vomiting, hematemesis, dysphagia, velopharyngeal insufficiency and odynophagia. No change in he frequency or intensity of symptoms. Has had no melena. Has had no . Discussed use of H2 antagonists NA. 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 Has had no attacks since last examination. Currently taking NSAIDS. No interval complaints of any new joint involvement. #4. History of hypercholesterolaemia: History of the high cholesterol. Not taking any medications and being controlled by diet. No interval complaints of any chest pain, shortness of breath, orthopnea or other cardiovascular complaints. Last lipid panel: fair control Active Medication ListNorvasc 5 MG (TABLET - ORAL) One Daily For HtnProtonix 40 MG (TABLET, DELAYED RELEASE - ORAL) One DailyVitamin C DailyFish Oil Caps DailyClaritin 10 MG (TABLET - ORAL) Once DailyTurmeric Daily Adverse Drug Reactions ReviewedAce Inhibitors AngioedemaSulfa Drugs ItchingKeflex Trouble Urinating Vaccination and Dsmbpeedjjkc5921-85 Lvgbulpgy9038-14 Covid Uscwav7119-93 Nmykdpin5013-74 Prevnar 13 Rq2531-87 Pneumovax Surgical Isrbjpw4263-49 Lt. Inguinal Imrndy4272-16 Rt. Inguinal Jqbnph3704-67 Tonsillectomy Preventative Qewdjro0208/28/2023 ALBUMIN 4.1 G/DL03/14/2022 DEXA SCAN08/27/2018 UPPER WBCGXKKRY03/16/2018 THUJNSYSS13/21/2016 PSA 3.2 NG/ML N003/09/2014 COLONOSCOPY 03/09/2024 Social HistoryDoes not smoke cigarettes. Drinking Hx: 6 to 12 beers per week.Exercise: WeeklySexual Hx: Sexually ActiveOccupation: Retired [employer] C[employer] Family HistoryMother 80 years oldFather 32 years oldMother Hx: ASHDFather Hx: Peritonitis Conor Sena MD [address], [facility] [address], [place], [address], [employer] 02/26/2024 11:31:01 03/03/2024 text/html Patient is a 88-year-old male who returns for routine foot care. Patient states his nails are long and he is unable to cut them would like to have them cut. Patient denies any open or active wounds. Patient denies any intermittent claudication. Patient denies any other complaints. Jabari Ignacio DPM [address], [facility] [address], [place], [address], [employer] [facility] 03/03/2024 12:59:31 07/07/2024 text/html . Patient is an 88-year-old male who presents the office with complaints of pain to his right 3rd toenail he states it is thickened and causing him significant discomfort with walking and pressure. Patient denies any redness drainage or injury to the toe. Patient states when he has pressure in his shoes it is more painful. Patient denies any other complaints. Jabari Ignacio DPM [address], [facility] [address], [place], [address], [employer] 07/16/2024 12:02:33 07/23/2024 text/html The patient retu rns complaining of right shoulder pain. He states he was doing pretty well until recently when a couple of weeks ago he was waxing a car. He was buffing waxing with his right arm states he was putting a lot of elbow grease into it. Over the next couple of days he started having more and more pain in the right shoulder. 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 He denies any other specific new trauma or injury he has had some chronic pain and weakness a shot of cortisone in December of this year gave him really good relief until recently when his shoulder pain flared up again from overuse. He has trouble raising his arm up overhead if he uses his other arm to help it get going then he can get it up but he can not do anything in terms of heavy lifting pushing or pulling. He takes oogl-bkd-kvdiqyc oral anti-inflammatories occasionally and Tylenol but his pain today is significant enough that he would like to consider another shot of cortisone. It has been 7 months since his last 1. He does note that the weakness and aching in the shoulder have gotten a little worse with time. At nearly 89 years of age he is not a candidate for big surgery his option would be reverse shoulder arthroplasty but he would rather get by with conservative measures I think that is the best option for him. ALEXANDRE Bowman [address] [place] [address], [facility] [address], [place], [address], [place] [facility] [employer] [facility] 07/23/2024 15:12:36 09/23/2024 text/html Patient Name: Christine Frias Mechellete Of Service: Saturday ( 09.23.2024 ): 1935 Age: 89 There has been approximately a 2.5 lb weight gain since 02/26/2024. This represents approximately a 1.9% change in weight. Weight change attributable to lifestyle changes. Vital Signs:Blood Pressure: Sitting Rt. Arm 120/78Pulse: Sitting 82 /min and RegularRespiratory Rate: 16Height 62.5 in or 1.6 mWeight 133.5 lb or 60.6 kgBMI 24.0Temperature: 97 F or 36.1 C Chief Complaint: Addressed in HPI Problems or conditions discussed in the HPI were the only ones reviewed during the encounter.Only social and family history addressed in the HPI were reviewed during this encounter. Attendant(s): NoneConstitutional and Systemic Symptoms:none Medication Reconciliation: from medication list. History of Present Illness #1. Essential Hypertension: Stage: Stage I Interval Neurological Complaints no headaches. No shortness of breath, orthopnea or cardiovascular symptoms. No other symptoms related to end organ damage. Pressure has been under excellent control. Currently normal. No other end organ symptoms or findings. Therapy reviewed regarding management of hypertension and includes salt restriction and Norvasc. #2. Hx of esophageal reflux currently stable. Hx of Complications: none The severity, duration and intensity of symptoms have improved. Frequency: most meals Treatment consists medications taken on a regular basis. Current therapy includes no medication. There has been no nausea, eructation, vomiting, hematemesis, dysphagia, velopharyngeal insufficiency and odynophagia. No change in he frequency or intensity of symptoms. Has had no melena. Has had no . Discussed use of H2 antagonists and the possibility of trying to reduce the frequency of the use of any PPI inhibitors and try H2 antagonists to see if symptoms can be controlled with lease intensive therapy since a number of complications are associated with chronic prolonged use of PPI inhibitors. 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 Has had no attacks since last examination. Currently taking NSAIDS. No interval complaints of any new joint involvement. #4. History of hypercholesterolaemia: History of the high cholesterol. Not taking any medications and being controlled by diet. No interval complaints of any chest pain, shortness of breath, orthopnea or other cardiovascular complaints. Last lipid panel: no testing done recently Active Medication ListNorvasc 5 MG (TABLET - ORAL) One Daily For HtnProtonix 40 MG (TABLET, DELAYED RELEASE - ORAL) One DailyVitamin C DailyFish Oil Caps DailyClaritin 10 MG (TABLET - ORAL) Once DailyTurmeric Daily Adverse Drug Reactions ReviewedAce Inhibitors AngioedemaSulfa Drugs ItchingKeflex Trouble Urinating Vaccination and Immunization( ) 2012-06 PNEUMOVAX( ) 2024-06 INFLUENZA(X) 2015-01 PREVNAR 13 GC PREVNAR 20 Needed( ) 2020-08 SHINGRIX(X) 2021-07 COVDocuTAP Surgical Krjragy4162-97 Lt. Inguinal Iazaib3575-13 Rt. Inguinal Ustdov3231-62 Tonsillectomy Preventative Testing( ) 01/14/2024 Optometry( ) 08/28/2023 Albumin 4.1 G/DL( ) 03/14/2022 DEXA Scan 03/14/2024( ) 08/27/2018 Upper Endoscopy( ) 02/21/2016 PSA 3.2 NG/ML N( ) 03/09/2014 Colonoscopy Social HistoryDoes not smoke cigarettes. Drinking Hx: 6 to 12 beers per week.Exercise: WeeklySexual Hx: Sexually ActiveOccupation: Retired [employer] Family HistoryMother 80 years oldFather 32 years oldMother Hx: ASHDFather Hx: Peritonitis Conor Sena MD [address] [facility], [facility] [address], [place], [address], [facility] 09/23/2024 11:46:58
--- OUTSIDE RECORDS SUMMARY | 2024-10-09 18:35 | XMS_ITS | Continuity of Care Document ---
Author Organization [facility] Address [address] [place] [address] [address] [place] [address] Phone Care Team Providers Care Lap Winder Name Role Phone Clover Martines Unavailable Unavailable Advance Directives Directive Yes / No Effective Date File Name No Information Encounters Encounter Description Practice Location Reason(s) For Visit Diagnoses Date Provider Providers Copied on Encounter [facility], [address], [place], [place], [id number], [place] tel:[phone] SEC [facility] [place] No Information Mar-0 6-200 3 Bobbi Galo. [address] [facility] , [address], [place], [address], [place]. tel:[phone] Family History Family Member Type Diagnosis Age At Onset No Information Payers Payer name Insurance type Covered green party ID Authoriza tion(s) [place] [id number] Social History Type Description Quantity Date Captured Comments Sex Male Smoking Status No Information Chief Complaint And Reason For Visit No Information Reason For Referral Reason For Referral No Information History Of Present Illness Encounter Date Complaint History Of Prese nt Illness No Information Functional Status Date Functional Assessmen t No Information Instructions Date Instruction Additional Infor mation No Information Assessments Type Assessment Date No Information Patient Care Teams Name Effective Dates (start - stop) Status Members No Information
[2024-10-09 18:41] VITALS: BP 165/73; PULSE 87; RESP 17; TEMP 36.6; O2SAT 98
--- NOTE | 2024-10-09 19:44 | ECG_ITS ---
Test Date: 2024-10-09 20:28:08 Measurements Intervals [place] Rate: 76 P: 57 ME: 171 QRS: 23 QRSD: 86 T: 80 QT: 361 QTc: 408 Interpretive Statements SINUS RHYTHM DELAYED PRECORDIAL R/S TRANSITION NONSPECIFIC T-WAVE ABNORMALITY- HIGH LATERAL LEADS BASELINE ARTIFACT- I, II, III, AVR, AVL, AVF BORDERLINE ECG No previous ECG available for comparison Electronically Signed On 10-10-2024 06:36:54 FLAT DRIER by Severo Noland D.O.
--- NOTE | 2024-10-09 19:44 | ED.AMS ---
HPI - Altered Mental Status General Chief Complaint: Altered Mental Status Stated Complaint: cva? head injury Time Seen by Provider: 10/09/24 19:45 Focused HPI: This is an 89-year-old male that presents to the emergency department for increased confusion. Noted intermittently over the last couple of weeks. He has also had two syncopal episodes. Three days ago he tripped and fell and hit his head. Patient has no complaints currently. GENERAL: Elderly, well-nourished, and in no acute distress. HEAD: Normocephalic. Superficial laceration to the forehead CHEST: Clear to auscultation. ?No respiratory distress. HEART: Regular rate and rhythm.? NEURO: ?Alert and oriented x3. Patient screened in triage and initial orders placed.? ?Additional care and disposition to be based upon?diagnostic testing and treatment. Related Data Allergies Allergy/AdvReac Type Severity Reaction Status Date / Time cephalexin Allergy Mild DIFFICULTY Verified 08/22/18 11:09 URINATING lisinopril Allergy Mild FACIAL Verified 08/22/18 11:09 SWELLING Review of Systems Review of Systems: CONSTITUTIONAL: Denies fever CARDIOVASCULAR: Denies chest pain RESPIRATORY: Denies cough or dyspnea. GASTROINTESTINAL: Denies abdominal pain, nausea, vomiting NEUROLOGIC: Denies numbness, or weakness. All systems reviewed & are unremarkable except as noted in HPI and below PMFSH Past Medical History Medical History (Updated 10/10/24 @ 00:27 by Ivy Willard PA-C) History of gastroesophageal reflux (GERD) History of hypertension Social History Social History (Updated 10/10/24 @ 00:28 by Ivy Willard PA-C) Smoking status: Never smoker Exam Narrative: GENERAL: Elderly, well-nourished, and in no acute distress. HEAD: Normocephalic. Superficial abrasion to the forehead EYES: PERRLA and EOMI. ENT: Nares clear, no rhinorrhea or epistaxis. Mucous membranes moist. Oropharynx without tonsillar hypertrophy exudate or other lesions. NECK: Supple. No adenopathy or masses. CHEST: Clear to auscultation. No respiratory distress. No wheezes rales or rhonchi HEART: Regular rate and rhythm. No murmur heard. Normal peripheral pulses. EXTREMITIES: Normal range of motion. No edema. SKIN: Warm, dry, no rash. NEURO: No focal deficits. Alert and oriented x2. CN II-XII grossly intact. Normal gait PSYCH: Normal mood and affect Course Course Emergency Course: Had long discussion with patient and family about admission for further evaluation versus close outpatient follow-up. They would like to take patient home as he does not wish to stay in the hospital at this time. They do have an appointment with his PCP on Saturday (in 2 days) Vital Signs Vital signs: Vital Signs Temperature 97.9 F 10/09/24 18:41 Pulse Rate 87 10/09/24 18:41 Respiratory Rate 17 10/09/24 18:41 Blood Pressure 165/73 H 10/09/24 18:41 Pulse Oximetry 98 10/09/24 18:41 Oxygen Delivery Room Air 10/09/24 18:41 Temperature 97.9 F 10/09/24 18:41 Pulse Rate 75 10/09/24 22:30 Respiratory Rate 18 10/09/24 22:30 Blood Pressure 186/89 H 10/09/24 22:30 Pulse Oximetry 97 10/09/24 22:30 Oxygen Delivery Room Air 10/09/24 18:41 MDM - Altered Mental Status MDM Narrative Medical decision making narrative: Patient presents to the emergency department for evaluation with his . reporting and he has had intermittent confusion the last couple of weeks. He has also had several falls. Patient is afebrile and nontoxic appearing. No focal deficits noted on exam. Cbc without leukocytosis. Shows normocytic anemia hemoglobin of 11.1. Metabolic panel without concerning findings. EKG without concerning changes and baseline troponin is negative. Urine without evidence of infection. Influenza, RSV and COVID screens are negative. CT brain, cervical spine, facial bones without acute findings. Chest x-ray without acute cardiopulmonary abnormality. Had long discussion with patient and family about admission for further evaluation versus close outpatient follow-up. They would like to take patient home as he does not wish to stay in the hospital at this time. They do have an appointment with his PCP on Saturday (in 2 days). They were instructed to return at any time for further evaluation Differential Diagnosis Differential diagnosis: Likely altered mental status, delirium, dementia, hyponatremia and other (infection, CVA, subdural hematoma) Lab Data Attestation: I reviewed the patient's lab results. 10/09/24 20:33 02/07/25 20:34 Labs: Lab Results 10/09/24 10/09/24 10/09/24 Range/Units 20:33 20:34 21:19 WBC 5.6 (4.5-10.0) K/mm3 RBC 3.35 L (4.6-6.20) M/mm3 Hgb 11.1 L (14.0-18.0) g/dL Hct 33.0 L (42.0-52.0) % MCV 98.5 (80-100) fl MCH 33.1 (26-34) pg MCHC 33.6 (32-36) g/dl RDW 15.5 H (11.5-14.5) % Plt Count 269 (150-375) k/mm3 MPV 9.7 (7.4-10.4) fl Immature Gran % (Auto) 0.4 (0-0.5) % Neut % (Auto) 63.8 (45.5-73.1) % Lymph % (Auto) 18.4 (18.3-44.2) % Thayer % (Auto) 14.0 H (2.6-8.5) % Eos % (Auto) 2.9 (0-4.4) % Baso % (Auto) 0.5 (0.2-1.2) % Lymph # (Auto) 1.03 (0.9-3.2) K/mm3 Thayer # (Auto) 0.8 H (0.1-0.6) K/mm3 Eos # (Auto) 0.2 (0-0.3) K/mm3 Baso # (Auto) 0.0 (0.0-0.1) K/mm3 Abs Immat Gran (auto) 0.02 (0.00-0.031) K/mm3 Absolute Neuts (auto) 3.6 (1.3-6.7) K/mm3 Absolute Nucleated RBC 0.000 (0.0-0.012) K/mm3 Nucleated RBC % 0.0 (0.0-0.2) % PT 13.9 (11.1-14.7) Seconds INR 1.0 APTT 27.4 (22.3-36.8) Seconds Sodium 132 L (137-145) mmol/L Potassium 3.8 (3.4-5.0) mmol/L Chloride 96 L (98-107) mmol/L Carbon Dioxide 25 (22-30) mmol/L Anion Gap 11 (4-12) mmol/L BUN 19 (9-20) mg/dL Creatinine 0.66 L (0.7-1.3) mg/dL Estim Creat Clear Calc Not Reportable Estimated GFR > 60 (59 - ) Glucose 150 H (65-110) mg/dL Calcium 8.9 (8.4-10.2) mg/dL Total Bilirubin 0.4 (0.2-1.3) mg/dL AST 39 (17-59) U/L ALT 24 (6-50) U/L Alkaline Phosphatase 116 (38-126) U/L Troponin I < 0.012 (0.000-0.034) ng/mL Total Protein 7.0 (6.3-8.2) g/dL Albumin 4.1 (3.5-5.1) g/dL Urine Color Yellow (Yellow) Urine Appearance Cloudy H (Clear) Urine pH 5.5 (5.0-9.0) Ur Specific [place] 1.020 (1.001-1.035) Urine Protein Negative (Negative) mg/dL Urine Glucose (UA) Negative (Negative) mg/dL Urine Ketones Negative (Negative) mg/dL Ur Blood (Man) Negative (Negative) Urine Nitrate Negative (Negative) Urine Bilirubin Negative (Negative) Urine Urobilinogen 0.2 (<2.0) mg/dL Leukocyte Esterase Rfl Negative (Negative) CELSO/UL Urine RBC 0-2 (0-2) /hpf Urine WBC 0-5 (0-3) /hpf Ur Squamous Epith Cells None seen (Few) /hpf Urine Bacteria None seen /hpf Urine Casts 0-2 Influenza A (RT-PCR) Negative (Negative) Influenza B (RT-PCR) Negative (Negative) RSV (RT-PCR) Negative (Negative) SARS-CoV-2 RNA (RT-PCR) Negative (Negative) Imaging Data Radiologist's impression: ITS Impressions Chest X-Ray 10/09/24 20:25 IMPRESSION: No focal infiltrate or effusion. Head CT 10/09/24 20:33 Impression: No acute intracranial hemorrhage or suspicious mass effect. 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 No discrete facial bone fracture is present. Critical Care Time Critical Care Time Critical Care Time: No Discharge Plan Discharge Clinical Impression: Altered mental status Qualifiers: Altered mental status type: unspecified Qualified Code(s): R41.82 - Altered mental status, unspecified Syncope Qualifiers: Syncope type: unspecified Qualified Code(s): R55 - Syncope and collapse Patient Disposition: Home, Self-Care Condition: Stable Instructions: Syncope (ED), Altered Mental Status (ED) Additional Instructions: Return to the emergency department if you experience fever, chest pain, shortness of breath, vomiting, weakness, numbness, worsening confusion, or any other symptoms that are concerning to you. Your blood work, EKG, urine, chest x-ray, CT scan of your brain were reassuring today. COVID, influenza, RSV tests were negative Follow up with your primary care doctor at your scheduled appointment for further evaluation of your symptoms Patient Language: [place] Citizen Follow-up/Referrals: Nathen,Timothy Lacy MD [Primary Care Provider] - 2 Days
[2024-10-09 20:40] LABS: Basophils Percent Auto 0.5 % (0.2-1.2); Eosinophils Absolute Auto 0.2 K/mm3 (0-0.3); Eosinophils Percent Auto 2.9 % (0-4.4); Hemoglobin 11.1 g/dL (14.0-18.0); Immature Granulocyte Absolute 0.02 K/mm3 (0.00-0.031); Immature Granulocyte Percent A 0.4 % (0-0.5); Lymphocytes Absolute Auto 1.03 K/mm3 (0.9-3.2); Lymphocytes Percent Auto 18.4 % (18.3-44.2); Mean Corpuscular HGB Conc 33.6 g/dl (32-36); Mean Corpuscular Hemoglobin 33.1 pg (26-34); Mean Corpuscular Volume 98.5 fl (80-100); Mean Platelet Volume 9.7 fl (7.4-10.4); Monocytes Absolute Auto 0.8 K/mm3 (0.1-0.6); Neutrophils Absolute Auto 3.6 K/mm3 (1.3-6.7); Neutrophils Percent Auto 63.8 % (45.5-73.1); Platelet Count Result 269 k/mm3 (150-375); Red Blood Count 3.35 M/mm3 (4.6-6.20); Red Cell Distribution Width 15.5 % (11.5-14.5); White Blood Count 5.6 K/mm3 (4.5-10.0)
[2024-10-09 20:51] LABS: Prothrombin Time 13.9 Seconds (11.1-14.7)
[2024-10-09 20:52] LABS: Partial Thromboplastin Time 27.4 Seconds (22.3-36.8)
[2024-10-09 20:54] LABS: Alanine Aminotransferase 24 U/L (6-50); Albumin Level 4.1 g/dL (3.5-5.1); Alkaline Phosphatase 116 U/L (38-126); Anion Gap 11 mmol/L (4-12); Aspartate Amino Transferase 39 U/L (17-59); Bilirubin,Total 0.4 mg/dL (0.2-1.3); Blood Urea Nitrogen 19 mg/dL (9-20); Calcium 8.9 mg/dL (8.4-10.2); Carbon Dioxide 25 mmol/L (22-30); Chloride 96 mmol/L (98-107); Estimated Glomerular Filt Rate > 60; Glucose 150 mg/dL (65-110); Potassium 3.8 mmol/L (3.4-5.0); Sodium 132 mmol/L (137-145)
[2024-10-09 21:06] LABS: Troponin I < 0.012 ng/mL (0.000-0.034)
[2024-10-09 21:22] VITALS: BP 176/75; PULSE 80; RESP 16; O2SAT 98
[2024-10-09 21:31] LABS: Add Urine Microscopic? YES; Appearance Urine Cloudy (Clear); Bacteria Urine None Seen /hpf; Bilirubin Urine Negative (Negative); Blood Urine Negative (Negative); Color Urine Yellow (Yellow); Glucose Urine UA Negative (Negative); Ketones Urine Negative (Negative); Leukocyte Esterase Ur Negative LEU/UL (Negative); Nitrate Urine Negative (Negative); Non Pathogenic Casts 0-2; Protein Urine Negative (Negative); RBC Urine 0-2 /hpf (0-2); Squamous Epithelial Cell Urine None Seen /hpf (Few); Urobilinogen Urine 0.2 mg/dL (<2.0); WBC Urine 0-5 /hpf (0-3); pH Urine 5.5 (5.0-9.0)
--- OUTSIDE RECORDS SUMMARY | 2024-10-09 21:54 | XMS_ITS | Continuity of Care Document ---
Author Organization [facility] Address [id number] [place] [address] [address] [place] [address] Phone Care Team Providers Care Private Tutor Name Role Phone Clover Martines Unavailable Unavailable Advance Directives Directive Yes / No Effective Date File Name No Information Encounters Encounter Description Practice Location Reason(s) For Visit Diagnoses Date Provider Providers Copied on Encounter [facility], [address], [place], [place], [id number], [place] tel:[phone] [facility] No Information Mar-0 6-200 3 Bobbi Galo. [address] , [address], [place], [address], [place]. tel:[phone] Family History Family Member Type Diagnosis Age At Onset No Information Payers Payer name Insurance type Covered republican ID Authoriza tion(s) [place] [id number] Social History Type Description Quantity Date Captured [...]
--- OUTSIDE RECORDS SUMMARY | 2024-10-09 21:54 | XMS_ITS | CONTINUITY OF CARE DOCUMENT ---
Author Name анна, анна Address Unknown Organization [facility] Address [address] [place] [address] Phone [phone] Care Team Providers Care Optics Test Technician Name Role Phone Tommy ARRIETA, Mary Unavailable [phone] KAYE ARRIETA, CONOR Unavailable CONOR SENA MD Unavailable PROBLEMS Condition Status Date Provider Notes Carotid bruit active Lan Berkowitz r. Sena Syncope active Malorie Puga Family History of Hypertension: completed - Mary Sanders MD Hypertension active ? Mary Sanders MD Chest discomfort, atypical active Mary manzo MD Abnormal stool finding active Mary Sanders MD ENCOUNTERS Date Type Provider Location Encounter Diag nosis - In-person encounter Office Visit Mary Sanders MD [facility] Family History of Hypertension:Hypertensio nChest discomfort, atypicalAbnormal stool finding VITAL SIGNS Date Observation Value Provider Body Mass Index (Ratio) 22.43 kg/m2 Jose Sanders MD blood pressure, diastolic 60 mm[Hg] Da manjula Pamella blood pressure, systolic 120 mm[Hg] Dac ia Pamella oxygen saturation, oximetry 99 % Leah Pamella respiratory rate E&M 16 /min Leah V oss pulse rate 74 /min Leah Pamella weight E&M 139 [lb_av] Leah Pamella height E&M 66 [in_i] Leah Pamella ALLERGIES Allergy Name Onset Date Reaction Criticality Status CEPHALEXIN High Criticality active LISINOPRIL High Criticality active HISTORY OF MEDICATION USE Medication Status Instructions Dates Provider Indications Com ments PROTONIX 40 MG ORAL TABLET DELAYED RELEASE active ONE TAB. DAILY Mary Sanders MD FISH OIL CAPSULE active ONE TAB. DAILY Jose Sanders MD AMLODIPINE BESYLATE 5 MG ORAL TABLET active take one tablet daily Leah Pamella SOCIAL HISTORY Date Observation Value Provider social history reviewed E&M revi ewed - no changes required Mary Sanders MD Surgical History of - Tonsillectomy Surgical History of - Tonsillectomy Mary Sanders MD social history E&M Patient has n ever smoked. A lcohol Use - yes Smoking History: P silvestre has never smoked. Mary Sanders MD alcohol use, average drinks per day social [facility] alcohol use yes Leah Pamella smoking status Never smoker Mary Sanders MD FAMILY HISTORY Family Member Condition Mother Family History of Hy pertension: INSURANCE PROVIDERS Payer name Policy type / Coverage type [place] red democrat ID [employer] S[employer]IOR [employer] INS Commercial insuran ce company [id number] [place] Medicare [id number] ADVANCE DIRECTIVES Name Date DISCUSSED - NO DECISION MADE TREATMENT PLAN Date Name Performer Cardiology :In house , his HgB was 8.7. C/o black stools that occur frequently and occured a few times last week. Associated fatigue and sob. Possible anemia. Mary Sanders MD Cardiology :Was rece ntly at [facility] ER for this type of chest pressure, and an EKG was done which was normal. In house, his HgB was 8.7. C/o black stools that occur frequently and occured a few times last week. Associated fatigue and sob. Suspect it may be an ulcer in his GI tract that may be causing these sx. Recommend him to stop taking aspirin and to have an endoscopy. Located substernally, and occured at night for the last three days. Hx of ulcers in his GI tract as a teenager. Mary Sanders MD Cardiology :BP today : 120/60 His updated medication list for this problem includes: Amlodipine Besylate 5 Mg Oral Tablet (Amlodipine besylate) ..... Take one tablet daily Mary Sanders MD Date Name Carotid Duplex Bilat eral Complete Echo HISTORY OF PROCEDURES Procedure Date Procedure Name Provider Procedure Notes S tatus EKG Mary Sanders MD completed Holter, 24 or 48 Stuart Lebron MD comp leted
[2024-10-09 21:59] LABS: Influenza A QL RT-PCR Negative (Negative); Influenza B QL RT-PCR Negative (Negative); RSV RNA, RT-PCR Negative (Negative); SARS-CoV-2 RNA PCR Negative (Negative)
[2024-10-09 22:30] VITALS: BP 186/89; PULSE 75; RESP 18; O2SAT 97
== END 2024-10-10 00:53 | disposition home or self-care (01) ==
PROVIDERS: Emergency Provider Physician Assistant; PCP Internal Medicine
DX: R41.82 Altered mental status, unspecified (principal); R55 Syncope and collapse; I10 Essential (primary) hypertension; K21.9 Gastro-esophageal reflux disease without esophagitis; Z20.822 Contact with and (suspected) exposure to COVID-19
CPT/HCPCS: 36415; 70450; 70486; 71046; 72125; 80053; 81001; 84484; 85025; 85610; 85730; 87637; 93005; 99284

== ENCOUNTER 2024-10-19 14:19 | Outpatient (CLI) | payer MEDICARE, SELFPAY ==
--- NOTE | ~2024-10-19 | MR_ITS ---
EXAMINATION: MR brain/brain stem wo/w con DATE: 10/19/2024 16:04 INDICATION: Syncope. TECHNIQUE: Magnetic resonance imaging (MRI) of the brain and brainstem was performed without and with 10 mL MultiHance intravenous contrast. COMPARISON: Head CT 10/09/2024 FINDINGS: There are scattered areas of nonspecific increased T2-weighted signal intensity in the cere bral white matter and rachel. There is no intracranial hemorrhage, acute infarction, or abnormal intrac ranial mass lesion. The ventricles are normal in size. There are likely changes of ocular lens replac ement surgeries. There is mild mucosal thickening in the ethmoid sinuses. The mastoid air cells are n ormal. IMPRESSION: 1. 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 Reviewed, dictated and finalized at location A. CONSULTANT IMPRESSION: 1. 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
--- OUTSIDE RECORDS SUMMARY | 2024-10-19 17:09 | XMS_ITS | Continuity of Care Document ---
Author Organization [facility] Address [address] [place] [address] [address] [place] [address] Phone Care Team Providers Care Dosier Operator Name Role Phone Clover Martines Unavailable Unavailable Advance Directives Directive Yes / No Effective Date File Name No Information Encounters Encounter Description Practice Location Reason(s) For Visit Diagnoses Date Provider Providers Copied on Encounter [facility], [address], [place], [place], [id number], [place] tel:[phone] [facility] [place] No Information Mar-0 6-200 3 Bobbi Galo. [address] , [address], [place], [address], [place]. tel:[phone] Family History Family Member Type Diagnosis Age At Onset No Information Payers Payer name Insurance type Covered libertarian ID Authoriza tion(s) [place] [id number] Social History Type Description Quantity Date Captured [...]
--- OUTSIDE RECORDS SUMMARY | 2024-10-19 17:09 | XMS_ITS | Data Portability ---
Author Organization [place] [employer] [place] [employer] [facility], Main Office Address [address] [place] [address] Care Team Providers Care Senior User Experience Architect Name Role Phone CONOR SENA Primary Care Provider CONOR SENA Referring Provider Assessment Encounter Date Assessment Date Assessment LastModified by Organization Details LastModified Time 03/03/2024 03/03/2024 This note is dictated and transcribed by [employer]. Produce Department Supervisor variances may occur. Despite proofreading, typographical errors may occur. Occasional wrong-word or 'gozte-i-vbqt' substitutions may have occurred due to the inherent limitations of voice recording. Read the chart carefully and recognize, using context, where substitutions have occurred. Not available 03/03/2024 12:59:13 07/07/2024 07/07/2024 This note is dictated and transcribed by [employer]. Produce Department Supervisor variances may occur. Despite proofreading, typographical errors may occur. Occasional wrong-word or 'eafyk-g-zlwr' substitutions may have occurred due to the [...] Not available Not available Not available Lab osmolalit y, urine 2024 025 [facility], [address] [place], [address], 10/12/2024 15:26:39 osmolalit y, serum 2024 025 [facility], [address] [place], [address], 10/12/2024 15:16:57 CMP, serum or plasma 2024 025 [facility], [address] [place], [address], 10/12/2024 15:20:22 urinalysi s, complete 2024 025 [facility], [address] [place], [address], 10/19/2024 04:19:11 uric acid, serum or plasma 2024 025 [facility], [address] [place], [address], 09/23/2024 16:01:04 magnesium , serum or plasma 2024 025 [facility], [address] [place], [address], 09/23/2024 16:00:58 vitamin B12, serum 2024 025 [facility], [address] [place], [address], 09/23/2024 16:50:00 CBC w/ auto diff 2024 025 [facility], [address] [place], [address], 09/23/2024 14:30:23 CMP, serum or plasma 2024 025 [facility], [address] [place], [address], 09/23/2024 16:00:50 lipid panel, serum 2024 025 [facility], [address] [place], [address], 09/23/2024 16:00:53 Referral physical therapist referral - Please contact patient to schedule [email or web address]ational [facility], [address] [place], [address], 09/30/2024 08:19:21 Procedures injection /aspirati on joint/bur sa (PROC) 2023 024 [email or web address] In-Office Order, Internal Use Only DO Not Attach Compendium DO Not Attach Compendium, Do Not Delete/merge, [id number] 07/23/2024 14:09:30 Surgeries None recorded. Imaging None recorded. Medication Orders prednison e 10 mg tablets in a dose pack 2023 024 [email or web address] [facility]/Pharmacy #[id number], [address], [place], [address], 09/23/2024 11:32:35 bupivacai ne HCl 0.5 % (5 mg/mL) injection solution 2023 024 [email or web address] [facility]/Pharmacy #[id number], [address], [place], [address], 09/23/2024 11:32:24 Kenalog 10 mg/mL suspensio n for injection 2023 024 [email or web address] [facility]/Pharmacy #[id number], [address], [place], [address], 09/23/2024 11:32:27 Patient TargetsNo targets recorded. Patient Instructions Encounter Date Encounter Id Patient Instructions Last Modified By Organization Details Last Modified Time 09/23/2024 [id number] Follow-up hypertension, GERD, gout as well as hyperlipidemia all clinically stable. Will continue on current medications check blood work in the form of CBC, CMP, B1, Magnesium, uric acid and lipid panel. Continue on current Rx follow-up in six months. Follow Up: 6 Months Approximate Date: 03/22/2025 Portions of the record may have been created with voice recognition software. Occasional wrong-word or s ound-a-like substitutions may have occurred due to the inherent limitations of voice recognition software. Read the chart carefully and recognize, using context, where substitutions have occurred. Created: Conor Sena M.D. 09.23.2024 10:46 AM [email or web address] Not available 09/23/2024 11:46:38 10/12/2024 [id number] Syncope, hypertension, hyponatremia. Plan to repeat blood work consisting of CBC, CMP, serum 8:00 a.m. 4:00 p.m. Cortisol. Set up with Neurology for further evaluation. Check an echocardiogram and Holter monitor further review any possibility of any type of cardiac arrhythmias. Additional Orders - Directives - Recommendations 1. Echocardiogram for syncope 2. 48 hour Holter monitor for syncope Follow Up: 4 Weeks Approximate Date: 11/09/2024 Portions of record are template driven. When necessary additional context will be provided. Additionally some portions have been created with voice recognition software. Occasional wrong-word or s ound-a-like substitutions may have occurred due to the inherent limitations of voice recognition software. Read the chart carefully and recognize, using context, where substitutions may have occurred. Created: Conor Sena M.D. 10.12.2024 11:41 AM [email or web address] Not available 10/12/2024 12:41:06 Reason for Referral Physical Therapist Referral for [...] 5.8 x10'3 /uL 4.2-10 .8 Not Available [facility] (Lab) [address] [place], [address], 09/23/2024 14:30:23 09/23/19 25 09/23/2024 CBC/C OMPLE TE BLD COUNT W/DIF F red blood cells 3.55 x10'6 /uL 4.10-5 .80 low Not Available [facility] (Lab) [address] [place], [address], 09/23/2024 14:30:23 09/23/19 25 09/23/2024 CBC/C OMPLE TE BLD COUNT W/DIF F hemoglobin 11.5 g/dL 13.2-1 7.0 low Not Available [facility] (Lab) [address] [place], [address], 09/23/2024 14:30:23 09/23/19 25 09/23/2024 CBC/C OMPLE TE BLD COUNT W/DIF F hematocrit 35.0 % 39.3-5 0.0 low Not Available [facility] (Lab) [address] [place], [address], 09/23/2024 14:30:23 09/23/19 25 09/23/2024 CBC/C OMPLE TE BLD COUNT W/DIF F mean red cell volume 98.6 fL 80.0-9 7.0 high Not Available [facility] (Lab) [address] [place], [address], 09/23/2024 14:30:23 09/23/19 25 09/23/2024 CBC/C OMPLE TE BLD COUNT W/DIF F mean red cell hemoglobin 32.4 pg 27.0-3 3.0 Not Available [facility] (Lab) [address] [place], [address], 09/23/2024 14:30:23 09/23/19 25 09/23/2024 CBC/C OMPLE TE BLD COUNT W/DIF F mean RBC HGB concentratio n 32.9 g/dL 31.0-3 6.0 Not Available [facility] (Lab) [address] [place], [address], 09/23/2024 14:30:23 09/23/19 25 09/23/2024 CBC/C OMPLE TE BLD COUNT W/DIF F red cell distribution width 15.2 % 11.8-1 5.5 Not Available [facility] (Lab) [address] [place], [address], 09/23/2024 14:30:23 09/23/19 25 09/23/2024 CBC/C OMPLE TE BLD COUNT W/DIF F platelets 305 x10'3 /uL 150-40 0 Not Available [facility] (Lab) [address] [place], [address], 09/23/2024 14:30:23 09/23/19 25 09/23/2024 CBC/C OMPLE TE BLD COUNT W/DIF F mean platelet volume 10.4 fL 9.0-12 .4 Not Available [facility] (Lab) [address] [place], [address], 09/23/2024 14:30:23 09/23/19 25 09/23/2024 CBC/C OMPLE TE BLD COUNT W/DIF F neutrophils 67.3 % 39.0-7 2.0 Not Available [facility] (Lab) [address] [place], [address], 09/23/2024 14:30:23 09/23/19 25 09/23/2024 CBC/C OMPLE TE BLD COUNT W/DIF F lymphocytes 15.0 % 16.0-4 7.0 low Not Available [facility] (Lab) [address] [place], [address], 09/23/2024 14:30:23 09/23/19 25 09/23/2024 CBC/C OMPLE TE BLD COUNT W/DIF F monocytes 14.6 % 5.0-12 .0 high Not Available [facility] (Lab) [address] [place], [address], 09/23/2024 14:30:23 09/23/19 25 09/23/2024 CBC/C OMPLE TE BLD COUNT W/DIF F eosinophils 1.9 % 1.0-7. 0 Not Available [facility] (Lab) [address] [place], [address], 09/23/2024 14:30:23 09/23/19 25 09/23/2024 CBC/C OMPLE TE BLD COUNT W/DIF F basophils 0.7 % 0.0-2. 0 Not Available [facility] (Lab) [address] [place], [address], 09/23/2024 14:30:23 09/23/19 25 09/23/2024 CBC/C OMPLE TE BLD COUNT W/DIF F immature granulocytes 0.5 % 0.00-0 .50 Not Available [facility] (Lab) [address] [place], [address], 09/23/2024 14:30:23 09/23/19 25 09/23/2024 CBC/C OMPLE TE BLD COUNT W/DIF F neutrophils, absolute count 3.91 x10'3 /uL 1.5-8. 0 Not Available [facility] (Lab) [address] [place], [address], 09/23/2024 14:30:23 09/23/19 25 09/23/2024 CBC/C OMPLE TE BLD COUNT W/DIF F lymphocytes, absolute count 0.87 x10'3 /uL 1.07-3 .43 low Not Available [facility] (Lab) [address] [place], [address], 09/23/2024 14:30:23 09/23/19 25 09/23/2024 CBC/C OMPLE TE BLD COUNT W/DIF F monocytes, absolute count 0.85 x10'3 /uL 0.29-0 .99 Not Available [facility] (Lab) [address] [place], [address], 09/23/2024 14:30:23 09/23/19 25 09/23/2024 CBC/C OMPLE TE BLD COUNT W/DIF F eosinophils, absolute count 0.11 x10'3 /uL 0.02-0 .53 Not Available [facility] (Lab) [address] [place], [address], 09/23/2024 14:30:23 09/23/19 25 09/23/2024 CBC/C OMPLE TE BLD COUNT W/DIF F basophils, absolute count 0.04 x10'3 /uL 0.01-0 .08 Not Available [facility] (Lab) [address] [place], [address], 09/23/2024 14:30:23 09/23/19 25 09/23/2024 CBC/C OMPLE TE BLD COUNT W/DIF F immature granulocytes ,absolute 0.03 x10'3 /uL 0.00-0 .05 Not Available [facility] (Lab) [address] [place], [address], 09/23/2024 14:30:23 09/23/19 25 09/23/2024 CBC/C OMPLE TE BLD COUNT W/DIF F nucleated red blood cells 0.0 % -0 Not Available [facility] (Lab) [address] [place], [address], 09/23/2024 14:30:23 09/23/19 25 09/23/2024 CBC/C OMPLE TE BLD COUNT W/DIF F NRBC# 0.00 x10'3 /uL Not Available [facility] (Lab) [address] [place], [address], 09/23/2024 14:30:23 09/23/19 25 09/23/2024 COMPR EHENS HAMILTON METAB OLIC PANEL sodium 130 mmol/ L 137-14 5 low Not Available [facility] (Lab) [address] [place], [address], 09/23/2024 16:00:50 09/23/19 25 09/23/2024 COMPR EHENS HAMILTON METAB OLIC PANEL potassium 4.6 mmol/ L 3.5-5. 1 Not Available [facility] (Lab) [address] [place], [address], 09/23/2024 16:00:50 09/23/19 25 09/23/2024 COMPR EHENS HAMILTON METAB OLIC PANEL chloride 97 mmol/ L 98-107 low Not Available [facility] (Lab) [address] [place], [address], 09/23/2024 16:00:50 09/23/19 25 09/23/2024 COMPR EHENS HAMILTON METAB OLIC PANEL carbon dioxide 30 mmol/ L 22-30 Not Available [facility] (Lab) [address] [place], [address], 09/23/2024 16:00:50 09/23/19 25 09/23/2024 COMPR EHENS HAMILTON METAB OLIC PANEL anion gap 7.6 mmol/ L 14-22 low Not Available [facility] (Lab) [address] [place], [address], 09/23/2024 16:00:50 09/23/19 25 09/23/2024 COMPR EHENS HAMILTON METAB OLIC PANEL glucose 87 mg/dL 70-99 Not Available [facility] (Lab) [address] [place], [address], 09/23/2024 16:00:50 09/23/19 25 09/23/2024 COMPR EHENS H[place]ILTON METAB OLIC PANEL BUN 17 mg/dL 8-19 Not Available [facility] (Lab) [address] [place], [address], 09/23/2024 16:00:50 09/23/19 25 09/23/2024 COMPR EHENS [place]ILTON METAB OLIC PANEL creatinine 0.76 mg/dL 0.66-1 .25 Not Available [facility] (Lab) [address] [place], [address], 09/23/2024 16:00:50 09/23/19 25 09/23/2024 COMPR EHENS [place]ILTON METAB OLIC PANEL GFR >60 Refer ence Range : [place] ge GFR Healt hy Adult : >60 [...] or ethni c subgr oups, such as Hispa nics. Outsi de the valid ated michael [...] avail able on the [facility] websi te: https ://ww w.kid cody.o rg/pr ofess ional s/kdo qi/gf r_cal culat or Not Available [facility] (Lab) [address] [place], [address], 09/23/2024 16:00:50 09/23/19 25 09/23/2024 COMPR EHENS HAMILTON METAB OLIC PANEL alkaline phosphatase 105 U/L 38-126 Not Available [facility] (Lab) [address] [place], [address], 09/23/2024 16:00:50 09/23/19 25 09/23/2024 COMPR EHENS HAMILTON METAB OLIC PANEL alanine aminotransfe rase 26 U/L 0-50 Not Available [facility] (Lab) [address] [place], [address], 09/23/2024 16:00:50 09/23/19 25 09/23/2024 COMPR EHENS [place]ILTON METAB OLIC PANEL aspartate aminotransfe rase 42 U/L 15-46 Not Available [facility] (Lab) [address] [place], [address], 09/23/2024 16:00:50 09/23/19 25 09/23/2024 COMPR EHENS HAMILTON METAB OLIC PANEL bilirubin, total 0.70 mg/dL 0.20-1 .30 Not Available [facility] (Lab) [address] [place], [address], 09/23/2024 16:00:50 09/23/19 25 09/23/2024 COMPR EHENS HAMILTON METAB OLIC PANEL calcium 9.6 mg/dL 8.4-10 .2 Not Available [facility] (Lab) [address] [place], [address], 09/23/2024 16:00:50 09/23/19 25 09/23/2024 COMPR EHENS HAMILTON METAB OLIC PANEL total protein 7.0 g/dL 6.3-8. 2 Not Available [facility] (Lab) [address] [place], [address], 09/23/2024 16:00:50 09/23/19 25 09/23/2024 COMPR EHENS HAMILTON METAB OLIC PANEL albumin 4.4 g/dL 3.0-4. 4 Not Available [facility] (Lab) [address] [place], [address], 09/23/2024 16:00:50 09/23/19 25 09/23/2024 COMPR EHENS HAMILTON METAB OLIC PANEL globulin 2.6 g/dL 2.6-4. 2 Not Available [facility] (Lab) [address] [place], [address], 09/23/2024 16:00:50 09/23/19 25 09/23/2024 COMPR EHENS HAMILTON METAB OLIC PANEL A/G ratio 1.7 ratio 1.0-2. 0 Not Available [facility] (Lab) [address] [place], [address], 09/23/2024 16:00:50 09/23/19 25 09/23/2024 LIPID PANEL cholesterol 202 mg/dL 140-19 9 high NIH LESLIE NSUS RECOM MENDA TION FOR TEOFILO STERO L: ADULT CHILD LOW RISK: <200 <170 BORDE RLINE : <200- 239 ----- HIGH RISK: >240 >200 Not Available [facility] (Lab) [address] [place], [address], 09/23/2024 16:00:53 09/23/1909/23/2024 LIPID PANEL triglyceride s 102 mg/dL 0-150 NIH LESLIE NSUS REPOR T RECOM MENDA TION FOR TRIGL YCERI TAMIKA: ADULT CHILD LOW RISK: <150 ----- BODER LINE: 150-1 99 ----- HIGH RISK: >200 ----- Not Available [facility] (Lab) [address] [place], [address], 09/23/2024 16:00:53 09/23/1909/23/2024 LIPID PANEL HDL cholesterol 83 mg/dL 40- Not Available [facility] (Lab) [address] [place], [address], 09/23/2024 16:00:53 09/23/19 25 09/23/2024 LIPID PANEL [...] WILL NOT BE REPOR JOAQUÍN. Not Available [facility] (Lab) [address] [place], [address], 09/23/2024 16:00:53 09/23/1909/23/2024 MAGNE SIUM magnesium 1.9 mg/dL 1.6-2. 3 Not Available [facility] (Lab) [address] [place], [address], 09/23/2024 16:00:58 09/23/19 25 09/23/2024 URIC ACID SERUM uric acid 4.2 mg/dL 3.5-8. 5 Not Available [facility] (Lab) [address] [place], [address], 09/23/2024 16:01:04 09/23/19 25 09/23/2024 VITAM IN B12 (ARMIDA ZABRINA ) vb12 990 pg/mL 239-93 1 high Not Available [facility] (Lab) [address] [place], [address], 09/23/2024 16:50:00 09/29/19 25 09/29/2024 OSMOL ALITY SERUM serum osmolality 285 mosmo l/kg 280-30 1 Not Available [facility] (Lab) [address] [place], [address], 09/29/2024 18:13:30 09/29/19 25 09/29/2024 OSMOL ALITY SERUM confirm 286 mosmo l/k 275-29 5 Not Available [facility] (Lab) [address] [place], [address], 09/29/2024 18:13:30 09/29/19 25 09/29/2024 OSMOL ALITY URINE ur osmol 494 mosmo l/k 50-120 0 Not Available [facility] (Lab) [address] [place], [address], 09/29/2024 18:15:57 09/29/19 25 09/29/2024 OSMOL ALITY URINE confirm 496 mosmo l/k 50-120 0 Not Available [facility] (Lab) [address] [place], [address], 09/29/2024 18:15:57 09/29/19 25 09/29/2024 IRON/ TIBC PANEL total iron binding capacity 293 mcg/d L 265-47 5 Not Available [facility] (Lab) [address] [place], [address], 09/29/2024 20:30:29 09/29/19 25 09/29/2024 IRON/ TIBC PANEL % transferrin saturation 28 % 20-55 Not Available [facility] (Lab) [address] [place], [address], 09/29/2024 20:30:29 09/29/19 25 09/29/2024 IRON/ TIBC PANEL unsaturated iron bind capacity 212 mcg/d L 126-38 2 Not Available [facility] (Lab) [address] [place], [address], 09/29/2024 20:30:29 09/29/19 25 09/29/2024 IRON/ TIBC PANEL iron 81 mcg/d L 42-175 Not Available [facility] (Lab) [address] [place], [address], 09/29/2024 20:30:29 09/29/19 25 09/30/2024 PROTE IN ELECT RO.,S protein, total 6.1 g/dL 6.0-8. 5 Not Available [facility] (Lab) [address] [place], [address], 09/30/2024 16:10:12 09/29/19 25 09/30/2024 PROTE IN ELECT RO.,S albumin 3.3 g/dL 2.9-4. 4 Not Available [facility] (Lab) [address] [place], [address], 09/30/2024 16:10:12 09/29/19 25 09/30/2024 PROTE IN ELECT RO.,S ftpzy-2-lsyu ulin 0.2 g/dL 0.0-0. 4 Not Available [facility] (Lab) [address] [place], [address], 09/30/2024 16:10:12 09/29/19 25 09/30/2024 PROTE IN ELECT RO.,S dzikv-0-riuf ulin 0.8 g/dL 0.4-1. 0 Not Available [facility] (Lab) [address] [facility] [place], [address], 09/30/2024 16:10:12 09/29/19 25 09/30/2024 PROTE IN ELECT RO.,S beta globulin 1.0 g/dL 0.7-1. 3 Not Available [facility] (Lab) [address] [place], [address], 09/30/2024 16:10:12 09/29/19 25 09/30/2024 PROTE IN ELECT RO.,S gamma globulin 0.8 g/dL 0.4-1. 8 Not Available [facility] (Lab) [address] [place], [address], 09/30/2024 16:10:12 09/29/19 25 09/30/2024 PROTE IN ELECT RO.,S M-spike NOT OBSERV ED g/dL not observ ed Not Available [facility] (Lab) [address] [place], [address], 09/30/2024 16:10:12 09/29/19 25 09/30/2024 PROTE IN ELECT RO.,S globulin, total 2.8 g/dL 2.2-3. 9 Not Available [facility] (Lab) [address] [place], [address], 09/30/2024 16:10:12 09/29/19 25 09/30/2024 PROTE IN ELECT RO.,S A/G ratio 1.2 0.7-1. 7 Not Available [facility] (Lab) [address] [place], [address], 09/30/2024 16:10:12 09/29/19 25 09/30/2024 PROTE IN ELECT RO.,S please note: COMMEN T . Prote in elect ropho resis scan will follo w via compu ter, mail, or couri er maral anderson. Not Available [facility] (Lab) [address] [place], [address], 09/30/2024 16:10:12 09/29/19 25 09/30/2024 PROTE IN Pricila DEL VALLE . Perfo rmed at: [facility] [address] [facility], [place] [address] Lab Direc tor: Jareth olivier PhD, Phone : [phone] Not Available [facility] (Lab) [address] [place], [address], 09/30/2024 16:10:12 09/29/19 25 09/30/2024 LA NENA TIN ferritin 38 NG/mL 17.9-4 64 Not Available [facility] (Lab) [address] [place], [address], 09/30/2024 17:30:29 10/12/19 25 10/12/2024 URINA LYSIS COMPL ETE, IRIS color LIGHT- YELLOW Not Available [facility] (Lab) [address] [place], [address], 10/12/2024 15:14:12 10/12/19 25 10/12/2024 URINA LYSIS COMPL ETE, IRIS appear CLEAR Not Available [facility] (Lab) [address] [place], [address], 10/12/2024 15:14:12 10/12/19 25 10/12/2024 URINA LYSIS COMPL ETE, IRIS specific gravity 1.013 1.001- 1.030 Not Available [facility] (Lab) [address] [place], [address], 10/12/2024 15:14:12 10/12/19 25 10/12/2024 URINA LYSIS COMPL ETE, IRIS pH 6.5 pH_un its 5.0-9. 0 Not Available [facility] (Lab) [address] [place], [address], 10/12/2024 15:14:12 10/12/19 25 10/12/2024 URINA LYSIS COMPL ETE, IRIS leukocytes NEGATI VE leticia/u L negati ve- Not Available [facility] (Lab) [address] [place], [address], 10/12/2024 15:14:12 10/12/19 25 10/12/2024 URINA LYSIS COMPL ETE, IRIS nitrite NEGATI VE negati ve- Not Available [facility] (Lab) [address] [place], [address], 10/12/2024 15:14:12 10/12/19 25 10/12/2024 URINA LYSIS COMPL ETE, IRIS protein NEGATI VE mg/dL negati ve- Not Available [facility] (Lab) [address] [place], [address], 10/12/2024 15:14:12 10/12/19 25 10/12/2024 URINA LYSIS COMPL ETE, IRIS glucose NORMAL mg/dL normal - Not Available [facility] (Lab) [address] [place], [address], 10/12/2024 15:14:12 10/12/19 25 10/12/2024 URINA LYSIS COMPL ETE, IRIS ketones NEGATI VE mg/dL negati ve- Not Available [facility] (Lab) [address] [place], [address], 10/12/2024 15:14:12 10/12/19 25 10/12/2024 URINA LYSIS COMPL ETE, IRIS urobilinogen NORMAL mg/dL normal - Not Available [facility] (Lab) [address] [place], [address], 10/12/2024 15:14:12 10/12/19 25 10/12/2024 URINA LYSIS COMPL ETE, IRIS bilirubin NEGATI VE mg/dL negati ve- Not Available [facility] (Lab) [address] [place], [address], 10/12/2024 15:14:12 10/12/19 25 10/12/2024 URINA LYSIS COMPL ETE, IRIS blood NEGATI VE mg/dL negati ve- Not Available [facility] (Lab) [address] [place], [address], 10/12/2024 15:14:12 10/12/19 25 10/12/2024 URINA LYSIS COMPL ETE, IRIS white blood cells 0-8 /i??h pfi?? 0-8 Not Available [facility] (Lab) [address] [place], [address], 10/12/2024 15:14:12 10/12/19 25 10/12/2024 URINA LYSIS COMPL ETE, IRIS red blood cells NONE /i??h pfi?? 0-4 Not Available [facility] (Lab) [address] [place], [address], 10/12/2024 15:14:12 10/12/19 25 10/12/2024 URINA LYSIS COMPL ETE, IRIS bacteria NONE Not Available [facility] (Lab) [address] [place], [address], 10/12/2024 15:14:12 10/12/19 25 10/12/2024 URINA LYSIS COMPL ETE, IRIS mucous OCCASI ONAL /i??l pfi?? abnormal Not Available [facility] (Lab) [address] [place], [address], 10/12/2024 15:14:12 10/12/19 25 10/12/2024 URINA LYSIS COMPL ETE, IRIS squamous epithelial NONE /i??l pfi?? abnormal Not Available [facility] (Lab) [address] [place], [address], 10/12/2024 15:14:12 10/12/19 25 10/12/2024 OSMOL ALITY SERUM serum osmolality 274 mosmo l/kg 280-30 1 low Not Available [facility] (Lab) [address] [place], [address], 10/12/2024 15:16:57 10/12/19 25 10/12/2024 OSMOL ALITY SERUM confirm 275 mosmo l/k 275-29 5 Not Available [facility] (Lab) [address] [place], [address], 10/12/2024 15:16:57 10/12/19 25 10/12/2024 COMPR EHENS H[place]IL[place] METAB OLIC PANEL sodium 128 mmol/ L 137-14 5 low Not Available [facility] (Lab) [address] [place], [address], 10/12/2024 15:20:22 10/12/19 25 10/12/2024 COMPR EHENS [place] METAB OLIC PANEL potassium 4.6 mmol/ L 3.5-5. 1 Not Available [facility] (Lab) [address] [place], [address], 10/12/2024 15:20:22 10/12/19 25 10/12/2024 COMPR EHENS H[place]IL[place] METAB OLIC PANEL chloride 95 mmol/ L 98-107 low Not Available [facility] (Lab) [address] [place], [address], 10/12/2024 15:20:22 10/12/19 25 10/12/2024 COMPR EHENS [place]IL[place] METAB OLIC PANEL carbon dioxide 28 mmol/ L 22-30 Not Available [facility] (Lab) [address] [place], [address], 10/12/2024 15:20:22 10/12/19 25 10/12/2024 COMPR EHENS HAMILTON METAB OLIC PANEL anion gap 9.6 mmol/ L 14-22 low Not Available [facility] (Lab) [address] [place], [address], 10/12/2024 15:20:22 10/12/19 25 10/12/2024 COMPR EHENS [place] METAB OLIC PANEL glucose 89 mg/dL 70-99 Not Available [facility] (Lab) [address] [place], [address], 10/12/2024 15:20:22 10/12/19 25 10/12/2024 COMPR EHENS [place] METAB OLIC PANEL BUN 17 mg/dL 8-19 Not Available [facility] (Lab) [address] [place], [address], 10/12/2024 15:20:22 10/12/19 25 10/12/2024 COMPR EHENS [place]ILTON METAB OLIC PANEL creatinine 0.80 mg/dL 0.66-1 .25 Not Available [facility] (Lab) [address] [place], [address], 10/12/2024 15:20:22 10/12/19 25 10/12/2024 COMPR EHENS HAMILTON METAB OLIC PANEL GFR >60 Refer ence Range : [place] ge GFR Healt hy Adult : >60 [...] or ethni c subgr oups, such as Hispa nics. Outsi de the valid ated michael [...] avail able on the [facility] websi te: https :[email or web address] ross.ginger pate/pr ofess ional s/kdo qi/gf r_cal culat or Not Available [facility] (Lab) [address] [place], [address], 10/12/2024 15:20:22 10/12/19 25 10/12/2024 COMPR EHENS HAMILTON METAB OLIC PANEL alkaline phosphatase 113 U/L 38-126 Not Available [facility] (Lab) [address] [place], [address], 10/12/2024 15:20:22 10/12/19 25 10/12/2024 COMPR EHENS HAMILTON METAB OLIC PANEL alanine aminotransfe rase 25 U/L 0-50 Not Available [facility] (Lab) [address] [place], [address], 10/12/2024 15:20:22 10/12/19 25 10/12/2024 COMPR EHENS HAMILTON METAB OLIC PANEL aspartate aminotransfe rase 35 U/L 15-46 Not Available [facility] (Lab) [address] [place], [address], 10/12/2024 15:20:22 10/12/19 25 10/12/2024 COMPR EHENS HAMILTON METAB OLIC PANEL bilirubin, total 0.80 mg/dL 0.20-1 .30 Not Available [facility] (Lab) [address] [place], [address], 10/12/2024 15:20:22 10/12/19 25 10/12/2024 COMPR EHENS HAMILTON METAB OLIC PANEL calcium 9.9 mg/dL 8.4-10 .2 Not Available [facility] (Lab) [address] [place], [address], 10/12/2024 15:20:22 10/12/19 25 10/12/2024 COMPR EHENS HAMILTON METAB OLIC PANEL total protein 7.2 g/dL 6.3-8. 2 Not Available [facility] (Lab) [address] [place], [address], 10/12/2024 15:20:22 10/12/19 25 10/12/2024 COMPR EHENS HAMILTON METAB OLIC PANEL albumin 4.4 g/dL 3.0-4. 4 Not Available [facility] (Lab) [address] [place], [address], 10/12/2024 15:20:22 10/12/19 25 10/12/2024 COMPR EHENS HAMILTON METAB OLIC PANEL globulin 2.8 g/dL 2.6-4. 2 Not Available [facility] (Lab) [address] [place], [address], 10/12/2024 15:20:22 10/12/19 25 10/12/2024 COMPR EHENS HAMILTON METAB OLIC PANEL A/G ratio 1.6 ratio 1.0-2. 0 Not Available [facility] (Lab) [address] [place], [address], 10/12/2024 15:20:22 10/12/19 25 10/12/2024 OSMOL ALITY URINE ur osmol 438 mosmo l/k 50-120 0 Not Available [facility] (Lab) [address] [place], [address], 10/12/2024 15:26:38 10/12/19 25 10/12/2024 OSMOL ALITY URINE confirm 439 mosmo l/k 50-120 0 Not Available [facility] (Lab) [address] [place], [address], 10/12/2024 15:26:38 10/09/19 25 10/09/2024 XR, chest No observ ation record ed. [address], [place], [address], 10/10/2024 01:41:29 10/09/19 25 10/09/2024 CT, brain , w/o contr ast No observ ation record ed. [address], [place], [address], 10/10/2024 01:42:07 10/09/19 25 10/09/2024 CT, cervi aden spine , w/wo contr ast No observ ation record ed. [email or web address] [address], [place], [address], 10/16/2024 14:29:26 10/19/19 25 10/19/2024 MRI, brain , w/wo contr ast No observ ation record ed. [address], [place], [address], 10/19/2024 17:34:48 Result Notes None recorded. Problems Name Problem SNOMED Code Status Onset Date Resolution Date Notes Provider Name and Address Organization Details Recorded Time Benign essential hypertensi on 5105604 Active Not Available [employer] 4 18:08:05 Disorder of sacrum 96964561 Active Not Available [employer] 4 18:08:05 Senile osteoporos is 59235882 Active 2021 Not Available [facility] 4 18:08:05 Foot callus 353193916 Active Not Available [facility] 4 18:08:05 Gastroesop hageal reflux disease 114386109 Active 2018 Not Available [facility] 4 18:08:05 Benign prostatic hyperplasi a 837143899 Active Not Available [facility] 4 18:08:05 Pure hyperchole sterolemia 903588766 Active Not Available [facility] 4 18:08:05 Syncope 085814276 Active 2021 Not Available [employer] 4 18:08:05 Chest pain 09984675 Active 2017 Not Available [facility] 4 18:08:05 Enthesopat hy of hip region 82525902 Active Not Available [facility] 4 18:08:05 Postoperat hamilton infection 90230191 Active Not Available [facility] 4 18:08:06 Contact dermatitis 88235554 Active Not Available [facility] 4 18:08:06 Onychomyco sis 663557968 Active Not Available [facility] 4 18:08:06 Carotid bruit 645438971 Active 2021 Not Available [facility] 4 18:08:06 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 94735594 Active Not Available [facility] 4 18:08:06 Gastric hemorrhage 01762943 Active 2018 Not Available [facility] 4 18:08:06 Gout 22035914 Active 2021 Not Available [facility] 4 18:08:06 Dystrophia unguium 78519711 Active 2022 Not Available [facility] 4 18:08:06 Unable to cut own toenails 602876720 Active 2022 Not Available [facility] 4 18:08:05 Pain of toe of right foot 7742768187408 01 Active 2022 Not Available [facility] 4 18:08:05 Hammer toe 977374652 Active 2022 Not Available [facility] 4 18:08:05 Anemia 102663085 Active 2023 Not Available [facility] 4 18:08:05 Acute bronchitis 32865315 Active 2023 Conor Sena MD [address], [place], [address] , [facility] 4 10:59:35 Expiratory wheezing 7423088 Active 2023 Conor Sena MD [address], [place], [address] , [facility] 4 11:46:28 Cough 05172905 Active 2023 Maude Chacon CMA null, [place] [facility] 4 11:44:22 Bilateral shoulder joint pain 4039120283387 9104 Active 2023 Lakshmi Hernadez null, [place] [facility] 4 15:22:30 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 1849177149433 100 Active 2023 ALEXANDRE Bowman [address], [place], [address] , [facility] 4 16:43:44 Tendinitis of left rotator cuff 8375338573522 9101 Active 2023 ALEXANDRE Bowman [address], [place], [address] , [facility] 4 16:43:57 Hyponatrem ia 06925144 Active 2024 KENN Christensen, [facility] 5 11:36:58 Insomnia 765964951 Active 2024 KENN Christensen, [place] [facility] 5 11:34:59 Problem Notes None recorded. Procedures Surgical History Date Name Laterality Status Provider Name and Address Organization Details Recorded Time 4 Nail Debridement completed Jabari Ignacio DPM [address], [place], [address], [facility] 07/07/2024 12:12:10 4 Nail Debridement completed Jabari Ignacio DPM [address], [place], [address], [facility] 03/03/2024 12:58:50 4 Medicare Wellness CPT Code, subsequent completed Ericka Nelson RN [facility] [employer] [facility] 02/26/2024 11:12:41 4 Advanced Care Planning completed Ericka Nelson RN [facility] [employer] [facility] 02/26/2024 11:24:36 4 Nail Debridement completed Jabari Ignacio DPM [address], [place], [address], [facility] [employer] [facility] 11/21/2023 16:23:12 3 Nail Debridement completed Jabari Ignacio DPM [address], [place], [address], [facility] [employer] [facility] 08/13/2023 10:34:46 3 Nail Debridement completed Jabari Ignacio DPM [address], [place], [address], [facility] [employer] [facility] 12/25/2022 10:41:54 3 Callus Debridement, One completed Jabari Ignacio DPM [address], [place], [address], [facility] [employer] [facility] 12/25/2022 10:42:02 Imaging Results Imaging Date Name Status LastModified by Organ [facility] Details LastModified Time 10/09/2024 XR, chest completed [address], [address], 10/10/2024 01:41:29 10/09/2024 CT, brain, w/o contrast completed [address], [address], 10/10/2024 01:42:07 10/09/2024 CT, cervical spine, w/wo contrast completed [address], [address], 10/16/2024 14:29:26 10/19/2024 MRI, brain, w/wo contrast completed [address], [address], 10/19/2024 17:34:48 Procedure Notes None recorded. Medical Equipment None Reported. Allergies Allergen ID Allergen Name Allergen Category Reaction Reaction Severity Criticality Documentation Date Start Date Code Code System Note Provider Name and Address Organization Details Recorded Time 1786 Substance with sulfonami de structure and antibacte rial mechanism of action (substanc e) medicatio n Not available Not available Not available 10/31/2022 43711 8003 SNOMED Not Available [facility] 3 01:15:28 1787 lisinopri l medicatio n Not available Not available Not available 10/31/2022 20112 RxNorm Not Available [facility] 3 01:15:28 1788 Keflex medicatio n other Not available Not available 10/31/2022 66975 7 RxNorm diffi culty urina ting Not Available [facility] 3 01:15:28 1789 cephalexi n medicatio n Not available Not available Not available 10/31/2022 2231 RxNorm Not Available [facility] 3 01:15:28 1790 Product containin g angiotens in-conver ting enzyme inhibitor (product) medicatio n other Not available Not available 10/31/2022 53494 009 SNOMED angio edema Not Available [facility] 3 01:15:28 Medications Name Sig Start Date Stop Date Status Note LastModified by Organization Details LastModified Time Tylenol-Cod eine #4 300 mg-60 mg tablet Take 1 [...] Not Available Not Available No t Available trazodone 50 mg tablet Take 1 tablet every day by oral route. 2024 active Not Available Not Available Not Avai lable azithromyci n 250 mg tablet TAKE 2 [...] 20 mg by injection route. 09/23 completed [facility]: 0003- 0494- 20 Not Available Not Available Not Available pantoprazol e 40 mg tablet,jack yed release TAKE 1 TABLET BY MOUTH EVERY DAY active Not Available Not Available No t Available ferrous sulfate 325 mg (65 mg iron) [...] administe red by the provider 03/12 completed [facility]: 0409- 4276- 17 Not Available Not Available Not Available Fish Oil 1,000 mg (120 mg-180 mg) capsule Take 1 capsule every day by oral route. 2018 active Not Available Not Available Not Avai lable Shingrix (PF) 50 mcg/0.5 mL intramuscul ar suspension, kit TO BE ADMINISTE RED BY PHARMACIS T FOR IMMUNIZAT ION 04/21 completed Not [...] Not Available Vitals Date Recorded Body height Heart rate Systolic blood pressure Diastolic blood pressure Provider Name and Address Organization Details Last Updated DateTime 03/03/2024 163.83 cm 73 /min 175 mm[Hg] 88 mm[Hg] JAC aY [employer] [facility] [employer] 03/03/2024 11:12:32 Date Recorded Body height Body mass index (BMI) Body weight Heart rate Systolic blood pressure Diastolic blood pressure Provider Name and Address Organization Details Last Updated DateTime 4 163.83 cm 22.1 kg/m2 37971.6 g 75 /min 167 mm[Hg] 77 mm[Hg] Sofía Dean [employer] [facility] [employer] 4 11:10:47 Date Recorded Body height Body mass index (BMI) Body weight Provider Name and Address Organization Details Last Updated DateTime 07/23/2024 167.64 cm 22.6 kg/m2 93175.93 g Candelaria Still CNA [employer] [facility] [employer] 07/23/2024 13:34:04 Date Recorded Body height Body mass index (BMI) Body weight Heart rate Body temperature Oxygen saturation Oxygen saturation in Arterial blood by Pulse oximetry Systolic blood pressure Diastolic blood pressure Provider Name and Address Organization Details Last Updated DateTime 5 158.75 cm 24 kg/m2 19661.5 8 g 82 /min 97 [degF] 97 % 97 % 120 mm[Hg] 78 mm[Hg] Mikayla Alvarado [employer] 5 11:32:11 Date Recorded Body height Body mass index (BMI) Body weight Heart rate Oxygen saturation Oxygen saturation in Arterial blood by Pulse oximetry Systolic blood pressure Diastolic blood pressure Provider Name and Address Organization Details Last Updated DateTime 5 158.75 cm 23.2 kg/m2 61679.4 2 g 42 /min 92 % 92 % 140 mm[Hg] 80 mm[Hg] Maude Chacon CMA [employer] [facility] [employer] 5 12:08:56 Social History Question Answer Notes LastModified by Organization Details LastModified Time Tobacco Smoking Status Former Smoker Not Available [facility] 10/31/2022 00:54:27 Do You Have An Advance Directive? No Info Given [email or web address] Information not available 02/26/2024 What Is Your Level Of Alcohol Consumption? Occasional MIGRATION.0301 [id number] Information not available 10/31/2022 Do You Wear A Helmet When Biking? No Don't Bike MIGRATION.0301 936773 Information not available 10/31/2022 Are You Blind Or Do You Have Difficulty Seeing? No MIGRATION.0301 067887 Information not available 10/31/2022 In The 14 Days Before Symptom Onset, Have You Had Close Contact With A Laboratory-confi rmed COVID-19 While That Case Was Ill? No MIGRATION.0301 119095 Information not available 10/31/2022 In The 14 Days Before Symptom Onset, Have You Had Close Contact With A Person Who Is Under Investigation For COVID-19 While That Person Was Ill? No MIGRATION.0301 964652 Information not available 10/31/2022 Are You Deaf Or Do You Have Serious Difficulty Hearing? Yes Has Hearing Aids MIGRATION.0301 154896 Information not available 10/31/2022 What Type Of Diet Are You Following? REGULAR MIGRATION.0301 023234 Information not available 10/31/2022 Have There Been Any Changes To Your Family Or Social Situation? No MIGRATION.0301 143065 Information not available 10/31/2022 What Is The Fluoride Status Of Your Home? Non-fluoridated MIGRATION.0301 831256 Information not available 10/31/2022 Are There Any Guns Present In Your Home? No MIGRATION.0301 969330 Information not available 10/31/2022 Do You Use Insect Repellent Routinely? No MIGRATION.0301 341036 Information not available 10/31/2022 Where Do You Live? SingleLevelHouse MIGRATION.0301 398493 Information not available 10/31/2022 Are You Able To Care For Yourself? Yes [email or web address] Information not available 02/26/2024 Are You Blind Or Do Yo Have Difficulty Seeing? No [email or web address] Information not available 02/26/2024 Are You Deaf Or Do You Have Serious Difficulty Hearing? No [email or web address] Information not available 02/26/2024 Live Alone Of With Others? With Others [email or web address] Information not available 02/26/2024 Do You Have A Medical Power Of Luncheonette Manager? No MIGRATION.0301 671061 Information not available 10/31/2022 What Was The Date Of Your Most Recent Tobacco Screening? 02/26/2024 [email or web address] Information not available 02/26/2024 Do You Have Any Pets? No MIGRATION.0301 768614 Information not available 10/31/2022 What Is Your Relationship Status? MIGRATION.0301 326107 Information not available 10/31/2022 Do You Use Your Seat Belt Or Car Seat Routinely? Yes MIGRATION.0301 127327 Information not available 10/31/2022 Do You Have Smoke And Carbon Monoxide Detectors In Your Home? Yes MIGRATION.0301 871754 Information not available 10/31/2022 Are You Passively Exposed To Smoke? No MIGRATION.0301 349672 Information not available 10/31/2022 Are There Any Smokers In Your House? No MIGRATION.0301 959797 Information not available 10/31/2022 Do You Feel Stressed (tense, Restless, Nervous, Or Anxious, Or Unable To Sleep At Night)? [id number] MIGRATION.0301 866416 Information not available 10/31/2022 Do You Use Sunscreen Routinely? No MIGRATION.0301 475078 Information not available 10/31/2022 Have You Recently Traveled Abroad? No MIGRATION.0301 614005 Information not available 10/31/2022 Do You Have Any Dietary Restrictions? No MIGRATION.0301 657313 Information not available 10/31/2022 Sex: Male Functional Status Question Answer Note LastModified by Organizat ion Details LastModified Time Do you have difficulty walking or climbing stairs? No MIGRATION.0368583 026 Information not available 10/31/2022 Do you have transportation difficulties? No MIGRATION.8969677 026 Information not available 10/31/2022 Are you able to walk? YESWOREST MIGRATION.0060919 026 Information not available 10/31/2022 Do you have difficulty doing errands alone? No MIGRATION.7161059 026 Information not available 10/31/2022 Are you able to care for yourself? Yes MIGRATION.2554821 026 Information not available 10/31/2022 Do you have difficulty dressing or bathing? No MIGRATION.8835782 026 Information not available 10/31/2022 What is your exercise level? Moderate MIGRATION.4123955 026 Information not available 10/31/2022 Mental Status Question Answer Note LastModified by Organizat ion Details LastModified Time Do you have difficulty concentrating, remembering or making decisions? No MIGRATION.018286655 6 Information not available 10/31/2022 Family History Relationship Description Onset Age of this Age Resolved Age Notes LastModified by Organization Details LastModified Time Mother Essential hypertension MIGRATION.057 [id number] Not available 10/31/2022 00:57:15 Mother Heart disease MIGRATION.727 [id number] Not available 10/31/2022 00:57:15 Mother Diabetes mellitus [...] ARTERY DISEASE (CAD) N ADDICTION CONCERNS N ENDOMETRIOSIS N Impotence N USE OF BLOOD THINNERS N SKIN [...] GLAUCOMA N FOOT PROBLEM N DIVERTICULITIS N CHICKENPOX N SLEEP APNEA N INFECTIOUS DISEASE N HEART ARRHYTHMIA N PROSTATE N INSOMNIA N HIGH CHOLESTEROL / HYPERLIPIDEMIA N HYPERTHYROIDISM N EYE PROBLEMS N EDEMA N CHRONIC PAIN SYNDROME N HYPOTHYROIDISM N CAROTID BLOCKAGE N CONSTIPATION N BACK / NECK PROBLEMS N HAVE YOU BEEN HOSPITALIZED OR SEEN IN [facility] ER IN THE PAST YEAR ? N ATHEROSCLEROSIS N BREAST PROBLEMS N DIALYSIS N ECZEMA N OSTEOPOROSIS N ARTHRITIS Y NO SIGNIFICANT PAST MEDICAL HISTORY N APPENDICITIS N DIABETES, TYPE N BAD TEETH N ENT N HEARTBURN / REFLUX N AUTISM SPECTRUM DISORDER (ASD) N HEPATITIS / LIVER DISEASE N GOUT N SLEEP DISORDER N ALZHEIMER'S DISEASE N Brain Problems N HERPES N DEMENTIA N HEADACHES/MIGRAINES N SEIZURES/EPILEPSY N VASCULAR DISEASE N PACEMAKER N Blood Disorder N DIZZINESS N HEART DISEASE/HEART PROBLEMS N KIDNEY DISEASE N MULTIPLE SCLEROSIS N CARDIAC ARRHYTHMIA N CANCER: SPECIFY N ATRIAL FIBRILLATION N Gall Stones N PULMONARY EMBOLISM N AUTOIMMUNE DISEASE N Immunizations Vaccine Type Date Status Note Provider Nam e and Address Organization Details Recorded Time influenza, unspecified formulation 4 completed [facility] [employer] 07/23/2024 18:16:03 Influenza, split virus, trivalent, preservative 8 completed Not Available [facility] 10/03/2023 18:08:06 Influenza, high-dose, trivalent, PF 2 completed Not Available [facility] 10/03/2023 18:08:06 Influenza, split virus, quadrivalent, preservative 1 completed Not Available [facility] 10/03/2023 18:08:06 COVID-19, mRNA, LNP-S, PF, 30 mcg/0.3 mL dose 1 completed Not Available [facility] 10/03/2023 18:08:06 SARS-COV-2 (COVID-19) vaccine, UNSPECIFIED 1 completed Not Available [facility] 10/03/2023 18:08:06 SARS-COV-2 (COVID-19) vaccine, UNSPECIFIED 1 completed Not Available [facility] 10/03/2023 18:08:06 pneumococcal polysaccharide PPV23 1 completed Not Available [facility] 10/03/2023 18:08:06 Td (adult), 5 Lf tetanus toxoid, preservative free, adsorbed 1 completed Not Available [facility] 10/03/2023 18:08:06 Pneumococcal conjugate PCV 13 5 completed Not Available [facility] 10/03/2023 18:08:06 Past Encounters Encounter ID Performer Location Encounter Start Date Encounter Closed Date Diagnosis/Indication Diagnosis SNOMED-CT Code Diagnosis ICD10 Code Diagnosis Note [id number] _JUMANA_Jeremy IGRATION_ DEFAULT_1 _1 , 12/16/2020 00:00:00 12/21/2020 10:33:54 [id number] [facility] Internal Med [facility] [address] [address] 02/08/2021 00:00:00 02/08/2021 11:55:26 [id number] [facility] Internal Med [facility] [address] [address] 04/20/2021 00:00:00 04/20/2021 11:52:24 [id number] [facility] [address] [facility] [address] [facility] [address] [place] [address] 04/21/2021 00:00:00 04/21/2021 15:00:19 [id number] [facility] Podiat[facility] [address] [facility] [address] [place] [address] 08/07/2021 00:00:00 08/08/2021 13:35:18 [id number] [facility] Internal Med [facility] [address] [address] 08/09/2021 00:00:00 08/09/2021 11:23:19 [id number] _JUMANA_Jeremy IGRATION_ DEFAULT_1 _1 , 12/01/2021 00:00:00 12/03/2021 14:23:41 [id number] [facility] Internal Med [facility] [address] [address] 03/12/2022 00:00:00 03/12/2022 12:37:23 [id number] _JUMANA_M IGRATION_ DEFAULT_1 _1 , 04/27/2022 00:00:00 04/30/2022 21:19:58 [id number] [facility] Internal Med [facility] [address] [place] [address] [address] 07/16/2022 00:00:00 07/16/2022 16:11:53 [id number] _ATHENA_M IGRATION_ DEFAULT_1 _1 , 08/24/2022 00:00:00 08/24/2022 11:20:18 [id number] [facility] Internal Med [facility] [address] [address] 08/29/2022 00:00:00 08/29/2022 16:53:48 [id number] Jabari Ignacio DPM [facility] Podiatry [address], [address] [address] 12/25/2022 10:17:12 12/25/2022 10:54:27 Dystrophia unguium 83134121 L60.3 Nails 1 through 10 were debrided with sharp mechanical debridemen t without incident. Nails were debrided and greater than 50% length and thickness where needed. Foot callus 224274092 L8 4 Debrided without incidentCo ntinue offloading Monitor for wounds daily it presents seek medical attention immediatel y Unable to cut own toenails 723007924 Z74.1 [id number] Conor Sena MD [facility] Internal Med [facility] [address] [address] 02/27/2023 15:42:52 02/27/2023 16:18:23 Gastroesophageal reflux disease 376645955 K21.9 Gout 62897479 M10.9 Pure hypercholesterolemia 095824906 E78.00 [id number] Jabari Ignacio DPM [facility] Podiatry [address], [address] [address] 08/13/2023 10:10:46 08/13/2023 11:43:41 Pain of toe of right foot 6909796654 00768 M79.674 right 3rd toeseconda ry to callus and toenail thicknessc ontinue supportive shoe gearfollow -up as needed Dystrophia unguium 63676 009 L60.3 Nails 1 through 10 were debrided with sharp mechanical debridemen t without incident. Nails were debrided and greater than 50% length and thickness where needed. Hammer toe [id number] M20 .41 continue offloading of toes to prevent wounddenie s surgery secondary to agewill continue to monitorrec ommend wide soft toe box style shoe gear [id number] Conor Sena MD [facility] Internal Med [facility] [address] [address] 08/28/2023 10:46:47 08/28/2023 11:28:58 Benign essential hypertension 6886155 I10 Benign pro static hyperplasia 364479852 N40.0 Pure hypercholesterolemia 426832560 E78.00 Gastroesop hageal reflux disease 924195359 K21.9 Gout 17063825 M10.9 [id number] Jabari Ignacio DPM [facility] [address] [facility], [facility] [address] [place] [address] 11/21/2023 14:12:34 11/26/2023 11:20:45 Dystrophia unguium 48572397 L60.3 Nails 1 through 10 were debrided with sharp mechanical debridemen t without incident. Nails were debrided and greater than 50% length and thickness where needed. Unable to cut own toenails 963076723 Z74.1 [id number] ALEXANDRE Bowman [facility] [address] 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 5039481375 849673 M75.121 Tendinitis of left rotator cuff 5853879219 1284775 M67.737 [id number] Conor Sena MD [facility] Internal Med [facility] [address] [address] 02/26/2024 10:48:09 02/26/2024 11:32:05 Adult health examination 589750856 Z00.00 Screening for disorder 834391379 Z13.9 Benign ess ential hypertension 3771705 I10 Gastroesop hageal reflux disease 461857301 K21.9 Gout 49487474 M10.9 Pure hypercholesterolemia 900397014 E78.00 [id number] Jabari Ignacio DPM [facility] [address] [facility], [facility] [address] [place] [address] 03/03/2024 11:06:24 03/06/2024 09:46:49 Dystrophia unguium 63634010 L60.3 Nails 1 through 10 were debrided with sharp mechanical debridemen t without incident. Nails were debrided and greater than 50% length and thickness where needed. Unable to cut own toenails 372252854 Z74.1 [id number] Jabari Ignacio DPM [facility] [address] [facility], [facility] [address] [place] [address] 07/07/2024 11:00:28 08/28/2024 11:12:28 Dystrophia unguium 85852272 L60.3 Nails 1 through 10 were debrided with sharp mechanical debridemen t without incident. Nails were debrided and greater than 50% length and thickness where needed. Pain of to e of right foot [id number] 91745 M79.674 right 3rd toeseconda ry to callus and toenail thickness- recommend offloading with silicone toe capcontinu e supportive shoe gearpatien t defers surgery secondary to agefollow- up as needed [id number] ALEXANDRE Bowman [facility] [address] [place] [address] 07/23/2024 13:22:11 07/23/2024 15:24:37 Bilateral shoulder joint pain 8194865160 6289664 M25.511 M25.512 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 1510067088 316817 M75.121 Tendinitis of left rotator cuff 5182254739 1243247 M67.227 [id number] Conor Sena MD [facility] Internal [facility] [address], [facility] [address] [place] [address] 09/23/2024 11:13:05 09/23/2024 11:53:31 Benign essential hypertension 7137246 I10 Gastroesop hageal reflux disease 243830098 K21.9 Gout 23411313 M10.9 Pure hypercholesterolemia 843607253 E78.00 [id number] Conor Sena MD [facility] [address] [facility] [place] [address] 10/12/2024 11:47:35 10/12/2024 13:25:04 Syncope 065465748 R55 Benign ess ential hypertension 0959934 I10 Hyponatremia 81951083 E8 7.1 Health Concerns Section Related Observation LastModified by Organization Detai ls LastModified Time None Recorded Concern Status LastModified by Organization Details LastModified Time None Recorded Advance Directives Directive N: Info given Payers Encounter Date Sequence Insurance Name Policy Number Policy Rosario Covered Member ID Rosario Member ID Guarantor Name 03/03/2024 1 [place] Bar Pryor [id number] Bar [id number] 03/03/2024 2 [employer] [place] [employer] (MEDICARE SUPPLEMENT) Bar Pryor [id number] Bar Krystopa 07/07/2024 1 [place] Bar Pyror [id number] Bar Krystopa 07/07/2024 2 [employer] [place] [employer] (MEDICARE SUPPLEMENT) Bar Pryor [id number] Bar Krystopa 07/23/2024 1 [place] Bar Pryor [id number] Bar Krystopa 07/23/2024 2 [employer] [place] [employer] (MEDICARE SUPPLEMENT) Bar Pryor [id number] Bar Krystopa 09/23/2024 1 [place] Bar Pryor [id number] Bar Krystopa 09/23/2024 2 [employer] [place] [employer] (MEDICARE SUPPLEMENT) Bar Pryor [id number] Bar Krystopa 10/12/2024 1 [place] Bar Pryor [id number] Bar Krystopa 10/12/2024 2 [employer] (MEDICARE SUPPLEMENT) Bar Pryor [id number] Bar Pryor Notes Date Note Type Note Provider Name and Address Organization Details Recorded Time text/html Patient is a 88-year-old male who returns for routine foot care. Patient states his nails are long and he is unable to cut them would like to have them cut. Patient denies any open or active wounds. Patient denies any intermittent claudication. Patient denies any other complaints. Jabari Ignacio DPM [address], [place], [address], [facility] [employer] [facility] 03/03/2024 12:59:31 4 text/html . Patient is an 88-year-old male [...] complaints. Jabari Ignacio DPM [address], [place], [address], [employer] [facility] [employer] [facility] 07/16/2024 12:02:33 4 text/html The patient returns complaining of right shoulder pain. He states [...] heavy lifting pushing or pulling. He takes hypf-iur-guecjig oral anti-inflammatories occasionally and Tylenol but his [...] the best option for him. ALEXANDRE Bowman [address], [place], [address], [place] [facility] [employer] 07/23/2024 15:12:36 5 text/html Patient Name: Bar Baker Of Service: Saturday ( 09.23.2024 ): 1935 [...] PREVNAR 20 Needed( ) 2020-08 SHINGRIX(X) 2021-07 COVContentDJ Surgical Mfhybah9830-26 Lt. Inguinal Equnos6684-32 Rt. Inguinal Cvssbq3720-51 Tonsillectomy Preventative Testing( ) 01/14/2024 Optometry( ) 08/28/2023 Albumin 4.1 G/DL( ) 03/14/2022 DEXA Scan 03/14/2024( ) 08/27/2018 Upper Endoscopy( ) 02/21/2016 PSA 3.2 NG/ML N( ) 03/09/2014 Colonoscopy Social HistoryDoes not smoke cigarettes. Drinking Hx: 6 to 12 beers per week.Exercise: WeeklySexual Hx: Sexually ActiveOccupation: Retired Bird R[employer] Family HistoryMother 80 years oldFather 32 years oldMother Hx: ASHDFather Hx: Peritonitis Conor Sena MD [address] [facility], [facility] [address], [place], [address], [facility] [employer] 09/23/2024 11:46:58 5 text/html Patient Name: Bar GuerreroEsther Of Service: Saturday ( 10.12.2024 ): 1935 Age: 89 There has been approximately a 4.5 lb weight loss since 09/23/2024. This represents approximately a 3.4% change in weight. Weight change attributable to lifestyle changes. Vital Signs:Blood Pressure: Sitting Rt. Arm 140/80Blood Pressure: Upright Rt. Arm 136/78Pulse: Sitting 72 /min and RegularPulse: Upright 74 /minRespiratory Rate: 16Height 62.5 in or 1.6 mWeight 129 lb or 58.5 kgBMI 23.2There is a 4 mm/Hg drop in systolic pressure between the two blood pressure measurements.The pulse decreased by 2 Chief Complaint: Addressed in HPI Problems or conditions discussed in the HPI were the only ones reviewed during the encounter.Only social and family history addressed in the HPI were reviewed during this encounter. Attendant(s): and DaughterConstitutional and Systemic Symptoms:none Medication Reconciliation: from medication list. [id number]: CT head scan showed some enlargement of the ventricles but not inconsistent with the degree of sulcal prominence. No mass or other intracranial abnormalities noted. No acute intracranial hemorrhage or suspicious [id number]: CT cervical spine And facial bones.significant degenerative disease without the cervical spine without acute fracture. No discrete facial bone fracture noted. . History of Present Illness #1. Recent history of two episodes of syncope one while sitting at the kitchen table when he simply dropped a plate sitting down in head went down on the table. He was only out for several seconds with subsequent regaining of consciousness and all vital signs. Second was at tenriism when he fell standing up he felt lightheaded went down for several seconds by the time paramedics got there her then returned to normal. Was seen and evaluated in the emergency room at [facility]. Did have a CT head scan performed which showed some ventricular enlargement but not specifically enlarged for the patient's age. Other abnormalities were noted. CT of the neck also failed to disclose any significant anomalies. Did have a slightly low sodium which will be discussed later. Clinically stable at this time has had no recurrent episodes. Has no prodromal type symptoms before one of the attacks. Has noticed a decrease in cognitive functioning is able to name 2/3 unrelated objects. Knows the day of the week and the president. Unable to recognize his but does recognize his daughter.: #2. Essential Hypertension: Stage: Stage I Interval Neurological Complaints no headaches, dizziness, weakness, visual changes, ataxia, aphasia and apraxia. No shortness of breath, orthopnea or cardiovascular symptoms. No other symptoms related to end organ damage. Pressure has been under excellent control. Currently normal. No other end organ symptoms or findings. Therapy reviewed regarding management of hypertension and includes salt restriction and Norvasc. #3. Hyponatremia as low as 130 not on any diuretics. F further studies done at the end of September which showed normal serum and urine osmolality. May need further evaluation can repeat see if these remain low. Had also a serum protein electrophoresis which was negative.: Active Medication ListNorvasc 5 MG (TABLET - ORAL) One Daily For HtnProtonix 40 MG (TABLET, DELAYED RELEASE - ORAL) One DailyVitamin C DailyFish Oil Caps DailyClaritin 10 MG (TABLET - ORAL) Once DailyTurmeric Daily Adverse Drug Reactions ReviewedAce Inhibitors AngioedemaSulfa Drugs ItchingKeflex Trouble Urinating Vaccination and Immunization( ) 2011- PNEUMOVAX( ) 2023- INFLUENZA(X) 2015-01 PREVNAR 13 GC PREVNAR 20 Needed( ) 2020-08 SHINGRIX(X) 2020- COVID Hologic Surgical Xrwluhe2357-11 Lt. Inguinal Zseuqg6471-96 Rt. Inguinal Uoucga1861-00 Tonsillectomy Preventative Testing( ) 09/29/2024 Albumin 3.3 G/DL( ) 01/14/2024 Optometry( ) 03/14/2022 DEXA Scan 03/14/2024( ) 08/27/2018 Upper Endoscopy( ) 02/21/2016 PSA 3.2 NG/ML N( ) 03/09/2014 Colonoscopy Social HistoryDoes not smoke cigarettes. Drinking Hx: 6 to 12 beers per week.Exercise: WeeklySexual Hx: Sexually ActiveOccupation: Retired [employer] Family HistoryMother 80 years oldFather 32 years oldMother Hx: ASHDFather Hx: Peritonitis Conor Sena MD [address] [facility], [facility] [address], [place], [address], [facility] [employer] 10/12/2024 12:41:59
== END 2024-10-19 14:20 | disposition home or self-care (01) ==
PROVIDERS: PCP Internal Medicine; Visit Provider Internal Medicine
DX: G93.89 Other specified disorders of brain (principal); R90.82 White matter disease, unspecified
CPT/HCPCS: 70553; A9577

== ENCOUNTER 2024-10-26 14:14 | Outpatient (CLI) | payer MEDICARE, SELFPAY ==
--- NOTE | 2024-10-26 | ECHO_ITS ---
Patient Info Name: Bar Pryor Age: 89 years : 1935 Gender: Male Ht: 65 in Wt: 140 lbs BSA: 1.71 m2 HR: 83 bpm BP: 175 / 85 mmHg Heart Rhythm: Sinus Rhythm Technical Quality: Good Exam Date: 10/26/2024 2:40 PM Exam Location: Echo Lab Patient Status: Outpatient Admit Date: 10/26/2024 Staff Ordering Physician: Guanakito, Timothy Lacy MD Director Of Nursing: Zunilda Estrella RDCS Attending Provider: Guanakito, Timothy Lacy MD Referring Physician: Neeraj, Boo ARRIETA; Exam Type: CA echo doppler color flow Study Info Indications R55 - Syncope and collapse Complete two-dimensional, color flow and Doppler transthoracic echocardiogram is performed. Summary 1. Complete two-dimensional, color flow and Doppler transthoracic echocardiogram is performed. 2. Left ventricular systolic function is normal, estimated at 60-65%. 3. The left ventricular diastolic function is grade I diastolic dysfunction. 4. There is mild aortic valve sclerosis. 5. There is mild aortic valve regurgitation. 6. There is mild mitral valve regurgitation. 7. There is mild mitral valve calcification. 8. There is mild tricuspid valve regurgitation. 9. No pulmonary hypertension, estimated pulmonary arterial systolic pressure is 35 mmHg. Left Ventricle Left ventricular chamber dimension is normal. Left ventricular systolic function is normal, estimated at 60-65%. There is no increased left ventricular wall thickness. Left ventricular septal wall motion is normal. The left ventricular diastolic function is grade I diastolic dysfunction. Right Ventricle Right ventricular chamber dimension is normal. Right ventricular systolic function is normal. Left Atria Left atrial chamber dimension is normal. Right Atria Right atrial chamber dimension is normal. Aortic Valve The aortic valve is trileaflet. There is mild aortic valve sclerosis. There is no aortic valve stenosis. There is mild aortic valve regurgitation. Pulmonic Valve The pulmonic valve is normal. There is no pulmonic valve stenosis. There is no pulmonic regurgitation. Mitral Valve The mitral valve has normal leaflets. There is no mitral valve stenosis. There is mild mitral valve regurgitation. There is mild mitral valve calcification. Tricuspid Valve The tricuspid valve leaflets are normal. There is no significant tricuspid valve stenosis. There is mild tricuspid valve regurgitation. No pulmonary hypertension, estimated pulmonary arterial systolic pressure is 35 mmHg. Pericardium/Pleural The pericardium appears normal. There is no pericardial effusion. Inferior Vena Cava Normal inferior vena cava with >50% collapse upon inspiration consistent with Empty right atrial pressure, 5 mmHg. Aorta The aortic root size at the sinus of Valsalva is normal. The prox ascending aorta size is normal. Left Ventricular Outflow Tract Name Value Normal LVOT 2D LVOT Diameter 2.0 cm LVOT Doppler LVOT Peak Gradient 3 mmHg LVOT Mean Gradient 2 mmHg LVOT VTI 18 cm LVOT VTI/AV VTI Ratio 0.6 LVOT Stroke Volume 59 ml LVOT CO 4.4 l/min LVOT CI 2.6 l/min/m2 Pulmonic Valve Name Value Normal RVOT Doppler RVOT Peak Gradient 2 mmHg PV Doppler PV Peak Gradient 7 mmHg Mitral Valve Name Value Normal MV Doppler MV Decel Hayes 385 cm/s2 MV PHT 48 ms MV Area (PHT) 4.6 cm2 4.0-5.0 MV Diastolic Function MV E Peak Velocity 64 cm/s MV A Peak Velocity 108 cm/s MV E/A 0.6 MV Decel Time 166 ms MV Annular TDI MV E/e' (Septal) 12.4 <=8.0 MV E/e' (Lateral) 8.4 <=8.0 MV E/e' (Average) 10.4 Tricuspid Valve Name Value Normal TV Regurgitation Doppler TR Peak Velocity 276 cm/s TR Peak Gradient 24 mmHg Estimated PAP/RSVP RA Pressure 5 mmHg <=5 PA Systolic Pressure 35 mmHg <36 RV Systolic Pressure 35 mmHg <36 Aorta Name Value Normal Ascending Aorta Ao Root Diameter (MM) 3.4 cm Ao Root Diam Index (MM) 2.0 cm/m2 Aortic Valve Name Value Normal AV Doppler AV Peak Velocity 176 cm/s AV Peak Gradient 12 mmHg AV Mean Gradient 6 mmHg AV VTI 31 cm AV Area (Cont Eq VTI) 1.9 cm2 >=3.0 AV Area (Cont Eq Lowell) 1.7 cm2 AV Regurgitation 2D LVOT Area 3.2 cm2 AV Regurgitation Doppler AR Decel Time 2,228 ms AR Decel Hayes 175 cm/s2 AR PHT 646 ms Ventricles Name Value Normal LV Dimensions 2D/MM IVS Diastolic Thickness (2D) 0.9 cm 0.6-1.0 LVID Diastole (2D) 5.0 cm 4.2-5.8 LVIW Diastolic Thickness (2D) 0.9 cm 0.6-1.0 LVID Systole (2D) 3.4 cm 2.5-4.0 LVOT Diameter 2.0 cm LV Mass (2D Cubed) 155.93 g 88.00-224.00 LV Mass Index (2D Cubed) 91 g/m2 49-115 Relative Wall Thickness (2D) 0.35 LV Fractional Shortening/Ejection Fraction 2D/MM LV Fractional Shortening (2D) 32 % 25-43 LV EF (2D Teicholz) 60 % 52-72 LV Diastolic Volume (4C MOD) 49 ml LV EF (4C MOD) 63 % LV Diastolic Volume (2C MOD) 43 ml LV EF (2C MOD) 60 % LV Diastolic Volume (BP MOD) 46 ml 62-150 LV Diastolic Volume Index (BP MOD) 27 ml/m2 34-74 LV Systolic Volume (BP MOD) 18 ml 21-61 LV Systolic Volume Index (BP MOD) 11 ml/m2 11-31 LV EF (BP MOD) 61 % 52-72 LV Diastolic Length (4C) 6.8 cm LV Systolic Length (4C) 6.0 cm LV Stroke Volume (4C MOD) 31 ml Atria Name Value Normal LA Dimensions LA Dimension (MM) 4.2 cm 3.0-4.1 LA Volume (4C A-L) 58 ml LA Volume (BP A-L) 59 ml RA Dimensions RA Area (4C) 9.9 cm2 <=18.0 Report Signatures
--- OUTSIDE RECORDS SUMMARY | 2024-10-26 16:40 | XMS_ITS | Continuity of Care Document ---
Author Organization [facility] Address [id number] [place] [address] [address] [place] [address] Phone Care Team Providers Care Options Advisor Name Role Phone Clover Martines Unavailable Unavailable Advance Directives Directive Yes / No Effective Date File Name No Information Encounters Encounter Description Practice Location Reason(s) For Visit Diagnoses Date Provider Providers Copied on Encounter [facility], [address], [place], [place], [id number], [place] tel:[phone] [facility] [place] No Information Mar-0 6-200 3 Bobbi Galo. [address] [facility] , [address], [place], [address], [place]. tel:[phone] Family History Family Member Type Diagnosis Age At Onset No Information Payers Payer name Insurance type Covered alliance party ID Authoriza tion(s) [place] [id number] Social History Type Description Quantity Date Captured [...]
--- OUTSIDE RECORDS SUMMARY | 2024-10-26 16:40 | XMS_ITS | Clinical Summary ---
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 Gender Identity Not on file Sexual Orientation Not on file Plan of Treatment Upcoming Encounters Date Type Department Care Team (Late st Contact Info) Description 04/08/2025 10:00 AM CDT Office Visit [facility] - [address] [place] [address] Boo Pickard MD [address] [place] [address] Health Maintenance Due Date Last Done Comments DTaP, Tdap and Td Vaccines ( 1 - Tdap) 1954 Zoster Vaccines (1 of 2) 1985 Annual Medicare Wellness Visit 2000 Pneumococcal Vaccine: 65+ Ye ars (1 of 1 - PCV) 2000 RSV Immunization or 60+ Years (1 - 1-dose 75+ series) 2010 COVID-19 Vaccine ( - 2023-2 5 season) 2024 Influenza Adult (#1) 2024 Meningococcal B Vaccine Aged Out No l onger eligible based on patient's age to complete this topic Meningococcal Vaccine Aged Out No gabino ronny eligible based on patient's age to complete this topic RSV Immunizations Under 20 Months Aged Out No longer eligible based on patient's age to complete [place] [id number] MEDICARE
--- OUTSIDE RECORDS SUMMARY | 2024-10-26 16:40 | XMS_ITS | CONTINUITY OF CARE DOCUMENT ---
Author Name анна, анна Address Unknown Organization [facility] Address [address] [facility] [address] [place] [address] Phone [phone] Care Team Providers Care Desulphurizer Operator Name Role Phone Tommy ARRIETA, Mary Unavailable NATHEN ARRIETA, CONOR Unavailable CONOR RESTREPO MD Unavailable PROBLEMS Condition Status Date Provider Notes Carotid bruit active Lan valero. Nathen Syncope active Malorie Puga Abnormal stool finding active Mary Sanders MD Chest discomfort, atypical active Mary manzo MD Hypertension active ? Mary Sanders MD Family History of Hypertension: completed - Mary Sanders MD ENCOUNTERS Date Type Provider Location Encounter Diag nosis - In-person encounter Office Visit Mary Sanders MD [place] [facility] Family History of Hypertension:Hypertensio nChest discomfort, [...] alcohol use, average drinks per day social [facility] alcohol use yes Leah Pamella smoking status Never smoker Mary Sanders MD FAMILY HISTORY Family Member Condition Mother Family History of Hy pertension: INSURANCE PROVIDERS Payer name Policy type / Coverage type [place] red alliance party ID [employer] INS Commercial insuran ce company [id number] [place] MED[place]ARE Medicare [id number] ADVANCE DIRECTIVES Name Date DISCUSSED - NO DECISION MADE TREATMENT PLAN Date Name Performer Cardiology :In house , his HgB was 8.7. C/o black stools that occur frequently and occured a few times last week. Associated fatigue and sob. Possible anemia. Mary Sanders MD Cardiology :Was rece ntly at [facility] for this type of chest pressure, [...]
== END 2024-10-26 14:15 | disposition home or self-care (01) ==
PROVIDERS: PCP Internal Medicine; Referring Provider Psychiatry & Neurology Neurology; Visit Provider Internal Medicine
DX: R55 Syncope and collapse (principal); I34.0 Nonrheumatic mitral (valve) insufficiency; I35.1 Nonrheumatic aortic (valve) insufficiency; I36.1 Nonrheumatic tricuspid (valve) insufficiency
CPT/HCPCS: 93242; 93306